=== PATIENT | female | born 1945 | race Two or more races ===

== ENCOUNTER 2025-09-15 12:57 | Inpatient (IN) | payer OTHER ==
[~2025-09-15] VITALS: Ht 162.6 cm; Wt 93.8 kg
[~2025-09-15 12:57] MED LIST: ALPR1TAB2; METO1TAB77; NIFE90TA25
--- NOTE | 2025-09-15 13:23 | ED.PDOC ---
History of Present Illness HPI Comments 80-year-old female brought by paramedics because of having high blood pressure noticed by caregiver. Patient was here few weeks ago for a fall. She does use a walker to assist her. She was scheduled to home nurse to help her ambulate. Home nurse did notice systolic blood pressure in the 200s. Denies chest pain shortness a breath. She does have a history of hypertension and coronary artery disease. Denies any other symptoms. Time Seen by MD: 13:17 Primary Care Provider: WILLIAMS Reviewed Notes: Nurses Notes, Medications, Allergies Allergies: Coded Allergies: Penicillins (Verified Allergy, Severe, RASHES, 05/30/10) Acetaminophen (Verified Allergy, Unknown, 09/15/25) Codeine (Verified Allergy, Unknown, 09/15/25) Erythromycin (Verified Allergy, Unknown, 09/15/25) Hydrocodone (Verified Allergy, Unknown, 09/15/25) Sulfamethoxazole w/Trimethoprim (Verified Allergy, Unknown, 09/15/25) Home Meds Reported Medications Alprazolam (Xanax) 1 Mg Tab, TID 05/30/10 Metoprolol Tartrate (Lopressor) 50 Mg Tab, DAILY 05/30/10 Nifedipine (Adalat Cc) 90 Mg Tab, DAILY 05/30/10 Information Source: Patient, Emergency Med Personnel Mode of Arrival: EMS Severity: Moderate Timing: Days Duration: Since onset Past Medical History PAST MEDICAL HISTORY: CAD, HTN Surgical History: BTL, Hysterectomy CHEMICAL PROCESS OPERATOR History: No Pertinent CHEMICAL PROCESS OPERATOR History Family History Family History: No family hx of Cancer Social History Smoker: Cigarettes Alcohol: Denies ETOH Use Drugs: Denies Drug Use Lives In: Home Constitutional: denies: chills, diaphoresis, fatigue, fever, malaise, sweats, weakness, others EENTM: denies: blurred vision, double vision, ear bleeding, ear discharge, ear drainage, ear pain, ear ringing, eye pain, eye redness, hearing loss, mouth pain, mouth swelling, nasal discharge, nose bleeding, nose congestion, nose pain, photophobia, tearing, throat pain, throat swelling, voice changes, others Respiratory: denies: cough, hemoptysis, orthopnea, SOB at rest, shortness of breath, SOB with excertion, stridor, wheezing, others Cardiovascular: denies: chest pain, dizzy spells, diaphoresis, Dyspnea on exertion, edema, irregular heart beat, left arm pain, lightheadedness, palpitations, PND, syncope, others Gastrointestinal: denies: abdomen distended, abdominal pain, blood streaked bowels, constipated, diarrhea, dysphagia, difficulty swallowing, hematemesis, melena, nausea, poor appetite, poor fluid intake, rectal bleeding, rectal pain, vomiting, others Genitourinary: denies: abnormal vagina bleeding, burning, dyspareunia, dysuria, flank pain, frequency, hematuria, incontinence, pain, , vagina disc harge, urgency, others Neurological: denies: dizziness, fainting, headache, left sided numbness, left sided weakness, numbness, paresthesia, pre-existing deficit, right sided numbness, right sided weakness, seizure, speech problems, tingling, tremors, weakness, others Musculoskeletal: denies: back pain, gout, joint pain, joint swelling, muscle pain, muscle stiffness, neck pain, others Integumetry: denies: bruises, change in color, change in hair/nails, dryness, laceration, lesions, lumps, rash, wounds, others Allergic/Immunocompromised: denies: Difficulty Healing, Frequent Infections, Hives, Itching, others Hematologic/Lymphatic: denies: anemia, blood clots, easy bleeding, easy bruising, swollen glands, others Endocrine: denies: excessive hunger, excessive sweating, excessive thirst, excessive urination, flushing, intolerance to cold, intolerance to heat, unexplained weight gain, unexplained weight loss, others Psychiatric: denies: anxiety, bipolar disorder, depression, hopeless, panic disorder, schizophrenia, sleepless, suicidal, others Physical Exam General Appearance: Moderate Distress HEENT: Normal ENT Inspection, Pharynx Normal, TMs Normal Neck: Full Range of Motion, Non-Tender, Normal, Normal Inspection Respiratory: Chest Non-Tender, Lungs Clear, No Accessory Muscle Use, No Respiratory Distress, Normal Breath Sounds Cardiovascular: No Edema, No JVD, No Murmur, No Gallop, Normal Peripheral Pulses, Regular Rate/Rhythm Breast Exam: Deferred Gastrointestinal: No Organomegaly, Non Tender, No Pulsatile Mass, Normal Bowel Sounds, Soft Genitalia: Deferred Pelvic: Deferred Rectal: Deferred Extremities: No calf tenderness, Normal capillary refill, Normal range of motion, Non-tender, No pedal edema Musculoskeletal : Apperance: Normal Neurologic: Alert, mirror framer II-XII nml as Tested, No Motor Deficits, Normal Affect, Normal Mood, No Sensory Deficits Cerebellar Function: NOT DONE Reflexes: NOT DONE Skin: Dry, Normal Color, Warm Peripheral Pulses: 3+ Radial (R), 3+ Radial (L) Lymphatic: No Adenopathy Was a procedure done? Was a procedure done?: No Differential Dx Considerations may include: Hypertension Electrolyte imbalance X-Ray, Labs, Meds, VS Vital Signs Date Time Temp Pulse Resp B/P (MAP) Pulse Ox O2 Delivery O2 Flow Rate FiO2 09/15/25 16:02 206/67 09/15/25 16:00 66 20 206/ (113) 95 09/15/25 14:17 180/64 09/15/25 13:30 97.7 56 18 180/64 (102) 99 97.7 09/15/25 13:30 55 18 99 Room Air* 0 21 09/15/25 12:57 97.6 60 16 175/73 97 97.6 09/15/25 12:57 59 Lab Test 09/15/25 17:00 09/15/25 13:33 Range/Units Urine Color Pending Urine Clarity Pending Urine pH Pending Urine Specific [place] Pending Urine Protein Pending Urine Ketones Pending Urine Blood Pending Urine Nitrite Pending Urine Bilirubin Pending Urine Urobilinogen Pending Urine Leukocyte Esterase Pending Urine RBC Pending Urine Microscopic WBC Pending Urine Squamous Epithelial Cells Pending Urine Bacteria Pending Urine Glucose Pending White Blood Count 8.5 4.4-10.8 10^3/uL Red Blood Count 4.16 4.0-5.20 10^6/uL Hemoglobin 10.8 L 12.2-16.2 g/dL Hematocrit 32.9 L 36.0-46.0 % Mean Corpuscular Volume 79.0 L 80.0-100.0 fL Mean Corpuscular Hemoglobin 25.8 L 28.0-32.0 pg Mean Corpuscular Hemoglobin Concent 32.7 32.0-36.0 g/dL Red Cell Distribution Width 15.4 H 11.8-14.3 % Platelet Count 288 140-450 10^3/uL Mean Platelet Volume 9.2 6.9-10.8 fL Neutrophils (%) (Auto) 51.5 37.0-80.0 % Lymphocytes (%) (Auto) 29.6 10.0-50.0 % Monocytes (%) (Auto) 11.9 0.0-12.0 % Eosinophils (%) (Auto) 6.4 0.0-7.0 % Basophils (%) (Auto) 0.6 0.0-2.0 % Neutrophils # (Auto) 4.4 1.6-8.6 10 ^3/uL Lymphocytes # (Auto) 2.5 0.4-5.4 10 ^3/uL Monocytes # (Auto) 1.0 0-1.3 10 ^3/uL Eosinophils # (Auto) 0.5 0-0.8 10 ^3/uL Basophils # (Auto) 0 0-0.2 10 ^3/uL Nucleated Red Blood Cells 0.0 % Sodium Level 142 136-145 mmol/L Potassium Level 4.4 3.5-5.1 mmol/L Chloride Level 105 98-107 mmol/L Carbon Dioxide Level 27 20-31 mmol/L Anion Gap 10 5-15 Blood Urea Nitrogen 14 9-23 mg/dL Creatinine 1.00 0.550-1.02 mg/dL Glomerular Filtration Rate Calc 58 >90 mL/min BUN/Creatinine Ratio 14.0 10.0-20.0 Serum Glucose 92 74-106 mg/dL Calcium Level 8.9 8.7-10.4 mg/dL Troponin I High Sensitivity 38 *H </=34 ng/L Current Medications Medications (Trade) Dose Ordered Sig/Dionna Route Start Time Stop Time Status Last Admin Hydralazine HCl (Apresoline Injection) 5 mg ONCE ONCE IV 09/15/25 14:15 09/15/25 14:16 DC 09/15/25 14:17 Hydralazine HCl (Apresoline Injection) 10 mg ONCE ONCE IV 09/15/25 15:30 09/15/25 15:31 DC 09/15/25 16:[address] [address] Ph: [phone] DIAGNOSTIC IMAGING Diagnostic Imaging Report : [id number] Signed PATIENT: FIDEL ARANGO ACCT: [id number] UNIT: [id number] : 1945 LOC: ER ROOM / BED: / AGE / SEX: 80 / F ADM STATUS: REG ER SERVICE 1317 ORDERING PHYSICIAN: DELFINO ARRIAGA MD PROCEDURE(s): CXRP - CHEST PORTABLE REASON: sob ORDER NUMBER(s): [id number], ACCESSION NUMBER(s): [id number] EXAM: XY CHEST PORTABLE Indication: sob Technique: Single frontal view of the chest was obtained Comparison: None FINDINGS: Lines and Tubes: None Lungs: No focal consolidation. Pleura: No effusion. No pneumothorax. Cardiomediastinal contours: Unremarkable. Atherosclerotic vascular calcifications of the thoracic aorta are noted. Bones: No acute osseous abnormality. IMPRESSION: No acute cardiopulmonary disease. Patient alert. Does have high blood pressure. Mentating well. Moving all extremities pain She does have injury to her left knee from fall that happened few weeks ago. She does use walker to assist. Was given hydralazine. Explained to the patient. Continue monitoring. Time of 1ST Reevaluation: 13:22 Reevaluation 1ST: Unchanged Patient Education/Counseling: Diagnosis, Treatment, Prognosis Family Education/Counseling: No Family Present SEPSIS Sepsis Screen Physician Orders Chest Portable (09/15/25 13:17) Urinalysis (09/15/25 13:17) Electrocardigram (09/15/25 13:45) Vital Signs Date Time Temp Pulse Resp B/P (MAP) Pulse Ox O2 Delivery O2 Flow Rate FiO2 09/15/25 16:02 206/67 09/15/25 16:00 66 20 206/67 (113) 95 09/15/25 14:17 180/64 09/15/25 13:30 97.7 56 18 180/64 (102) 99 97.7 09/15/25 13:30 55 18 99 Room Air* 0 21 09/15/25 12:57 97.6 60 16 175/73 97 97.6 09/15/25 12:57 59 Laboratory Tests Test 09/15/25 13:33 White Blood Count 8.5 10^3/uL (4.4-10.8) Medications Medications Dose Ordered Sig/Dionna Route Start Time Stop Time Status Last Admin Dose Admin Hydralazine HCl 5 mg ONCE ONCE IV 09/15/25 14:15 09/15/25 14:16 DC 09/15/25 14:17 Hydralazine HCl 10 mg ONCE ONCE IV 09/15/25 15:30 09/15/25 15:31 DC 09/15/25 16:02 Departure 1 Departure Time of Disposition: 13:23 Impression: Primary Impression: Hypertensive emergency Disposition: ADMITTED INPATIENT Admit to: Med Surg Condition: Guarded Critical Care Note Critical Care Time?: Yes (90 min-critical care time only) Stability Stability form required: No Heart Score Heart Score: Heart Score Response (Comments) Value History Slightly Suspicious 0 EKG Normal 0 Age >65 2 Risk Factors >3 or Hx ASHD 2 Troponin Normal limit 0 Total 4 I personally scribed for DELFINO ARRIAGA MD ([email or web address]) on 09/15/25 at 17:05. Electronically submitted by Farhana Landrum ([facility]). DELFINO ARRIAGA MD Sep 15, 2025 13:23
[2025-09-15 13:30] VITALS: PULSE 55; RESP 18; O2SAT 99
[2025-09-15] MEDS ORDERED: hydrALAZINE HCL 20 MG/ML VL IV ONE (13:30)
--- NOTE | 2025-09-15 13:58 | DVH ---
EXAM: XY CHEST PORTABLE Indication: sob Technique: Single frontal view of the chest was obtained Comparison: None FINDINGS: Lines and Tubes: None Lungs: No focal consolidation. Pleura: No effusion. No pneumothorax. Cardiomediastinal contours: Unremarkable. Atherosclerotic vascular calcifications of the thoracic ao rta are noted. Bones: No acute osseous abnormality. IMPRESSION: No acute cardiopulmonary disease.
[2025-09-15 14:07] LABS: Hematocrit 32.9 % (36.0-46.0); Hemoglobin 10.8 g/dL (12.2-16.2); Mean Corpuscular Hemoglobin 25.8 pg (28.0-32.0); Mean Corpuscular Volume 79.0 fL (80.0-100.0); Nucleated Red Blood Cells % 0.0 %
[2025-09-15 14:13] LABS: Chloride 105 mmol/L (98-107); Potassium 4.4 mmol/L (3.5-5.1); Sodium 142 mmol/L (136-145)
[2025-09-15 14:14] LABS: Anion Gap 10 (5-15); Carbon Dioxide 27 mmol/L (20-31)
[2025-09-15 14:15] LABS: Calcium 8.9 mg/dL (8.7-10.4)
[2025-09-15] MEDS: hydrALAZINE HCL 20 MG/ML VL IV ONE ×2 (14:17→16:02)
[2025-09-15 14:20] LABS: BUN/Creatinine Ratio 14.0 (10.0-20.0); Blood Urea Nitrogen 14 mg/dL (9-23); Glucose 92 mg/dL (74-106)
[2025-09-15 17:31] LABS: Urine Protein, UAD Negative (Negative)
--- NOTE | 2025-09-15 18:14 | ECG ---
[facility] Test Date: 2025-09-15 Test Time: 12:57:40 Pat Name: FIDEL ARANGO Department: [facility] ED Room: 0245T Gender: F Polisher Hand: [email or web address] : 1945 Requested By: DELFINO ARRIAGA Order Number: [id number] Reading MD: Todd Johnson Measurements Intervals [place] Rate: 59 P: 53 VT: 158 QRS: 43 QRSD: 93 T: 61 QT: 442 QTc: 438 Interpretive Statements Sinus rhythm Consider left ventricular hypertrophy Electronically Signed On 09-18-2025 14:58:04 PDT by Todd Johnson Please click the below link to view image of tracing.
[2025-09-15] MEDS ORDERED: DOCUSATE SOD 100 MG CAP PO PRN (19:00)
--- NOTE | 2025-09-15 20:04 | DVHHP2 ---
History of Present Illness Reason for Visit: Hypertensive emergency History of Present Illness The patient is a 80-year-old female with past medical history of Coronary artery disease and hypertension who presented to [facility] ED for evaluation of elevated blood pressure. Patient was here few weeks ago for a fall, noticed by caregiver elevated blood pressure with systolic blood pressure in the 200s and was instructed to come to the ED for further evaluation. Patient was seen and evaluated in the ED, laboratory data shows WBC 8.5, hemoglobin 10.8, hematocrit 32.9, platelets 288, sodium 142, potassium 4.4, BUN 14, creatinine 1.00, glucose 92, calcium 8.9, troponin 38, blood pressure 206/67 tr ending down to 138/54, heart rate 66, temperature 97.7 F, O2 saturation 99% on room air. Chest x-ray show no acute cardiopulmonary disease. Please see medication orders section in the computer. On my assessment, patient denied chest pain, no headache, dizziness, diaphoresis, shortness of breaths, no diarrhea, nausea, vomiting, fever, no chills. Patient was admitted for further evaluation and medical management. Past Medical History CAD, HTN Past Surgical History BTL, Hysterectomy Family History Reviewed, noncontributory to the management of this case. Past Social History The patient lives at home, smokes cigarettes, denies alcohol or illicit drugs abuse. Review of Systems Constitutional: Yes: Weakness; No: Fever, Chills, Sweats, Malaise, Other Eyes: No: Pain, Vision change, Conjunctivae inflammation, Eyelid inflammation, Other, Redness ENT: No: Ear pain, Ear discharge, Nose pain, Nose discharge, Nose congestion, Mouth pain, Mouth swelling, Throat pain, Throat swelling, Other Respiratory: No: Cough, Dry, Shortness of breath, SOB with excertion, Wheezing, Hemoptysis, Pleuritic Pain, Sputum, Wheezing, Other Cardiovascular: Other (Hypertension); No: Chest Pain, Palpitations, Orthopnea, Paroxysmal Noc. Dyspnea, Edema, Lt Headedness Gastrointestinal: No: Nausea, Vomiting, Abdominal Pain, Diarrhea, Constipation, Melena, Hematochezia, Other Genitourinary: No Dysuria, No Frequency, No Incontinence, No Hematuria, No Retention, No Other Musculoskeletal: No: other, neck pain, shoulder pain, arm pain, back pain, hand pain, leg pain, foot pain Skin: No: Rash, Lesions, Jaundice, Bruising, Other Neurological: No: Weakness, Numbness, Incoordination, Change in speech, Confusion, Seizures, Other Allergies: Coded Allergies: Penicillins (Verified Allergy, Severe, RASHES, 05/30/10) Acetaminophen (Verified Allergy, Unknown, 09/15/25) Codeine (Verified Allergy, Unknown, 09/15/25) Erythromycin (Verified Allergy, Unknown, 09/15/25) Hydrocodone (Verified Allergy, Unknown, 09/15/25) Sulfamethoxazole w/Trimethoprim (Verified Allergy, Unknown, 09/15/25) Medications Current Medications Medications Dose Ordered Sig/Dionna Route Start Time Stop Time Status Last Admin Dose Admin Amlodipine Besylate 5 mg DAILY PO 09/16/25 10:00 Hydralazine HCl 10 mg Q6HP PRN IV 09/15/25 19:00 Metoprolol Tartrate 50 mg BID PO 09/15/25 22:00 Sodium Chloride 10 ml Q8HR IV 09/15/25 22:00 Ondansetron HCl 4 mg Q4HP PRN IV 09/15/25 19:00 Docusate Sodium 100 mg BIDPRN PRN PO 09/15/25 19:00 Ibuprofen 400 mg Q6HP PRN PO 09/15/25 19:00 Exam Vital Signs Vital Signs Date Time Temp Pulse Resp B/P (MAP) Pulse Ox O2 Delivery O2 Flow Rate FiO2 09/15/25 16:02 206/67 09/15/25 16:00 66 20 95 09/15/25 13:30 97.7 97.7 09/15/25 13:30 Room Air* 0 21 General Appearance: Alert, Oriented X3, Cooperative, No acute distress HEENT: Atraumatic, PERRLA, EOMI, Mucous membr. moist/pink Respiratory: Normal air movement Cardiovascular: Regular rate, Normal S1, Normal S2, No murmurs Abdominal: Normal bowel sounds, Soft, No tenderness, No hepatospenomegaly, No masses Extremities: No clubbing, No cyanosis, No edema, Normal pulses, No tenderness/swelling Skin: No rashes, No significant lesion Neuro: Normal speech, Normal tone, Sensation intact, Cranial nerves 3-12 NL, Reflexes 2+, Other (Generalized weakness) Psych/Mental Status: Mental status NL, Mood NL Labs/Xrays Labs Test 09/15/25 17:00 09/15/25 13:33 Range/Units Urine Color Colorless Yellow Urine Clarity Clear Clear Urine pH 7.0 5.0-9.0 Urine Specific [place] 1.006 1.001-1.035 Urine Protein Negative Negative Urine Ketones Negative Negative Urine Blood Negative Negative /uL Urine Nitrite Negative Negative Urine Bilirubin Negative Negative Urine Urobilinogen Normal Negative mg/dL Urine Leukocyte Esterase Negative Negative /uL Urine RBC None seen 0 - 4 /hpf Urine Microscopic WBC < 1 0-5 /HPF Urine Squamous Epithelial Cells Few <5 /hpf Urine Bacteria None seen None Seen /hpf Urine Glucose Normal Normal mg/dL White Blood Count 8.5 4.4-10.8 10^3/uL Red Blood Count 4.16 4.0-5.20 10^6/uL Hemoglobin 10.8 L 12.2-16.2 g/dL Hematocrit 32.9 L 36.0-46.0 % Mean Corpuscular Volume 79.0 L 80.0-100.0 fL Mean Corpuscular Hemoglobin 25.8 L 28.0-32.0 pg Mean Corpuscular Hemoglobin Concent 32.7 32.0-36.0 g/dL Red Cell Distribution Width 15.4 H 11.8-14.3 % Platelet Count 288 140-450 10^3/uL Mean Platelet Volume 9.2 6.9-10.8 fL Neutrophils (%) (Auto) 51.5 37.0-80.0 % Lymphocytes (%) (Auto) 29.6 10.0-50.0 % Monocytes (%) (Auto) 11.9 0.0-12.0 % Eosinophils (%) (Auto) 6.4 0.0-7.0 % Basophils (%) (Auto) 0.6 0.0-2.0 % Neutrophils # (Auto) 4.4 1.6-8.6 10 ^3/uL Lymphocytes # (Auto) 2.5 0.4-5.4 10 ^3/uL Monocytes # (Auto) 1.0 0-1.3 10 ^3/uL Eosinophils # (Auto) 0.5 0-0.8 10 ^3/uL Basophils # (Auto) 0 0-0.2 10 ^3/uL Nucleated Red Blood Cells 0.0 % Sodium Level 142 136-145 mmol/L Potassium Level 4.4 3.5-5.1 mmol/L Chloride Level 105 98-107 mmol/L Carbon Dioxide Level 27 20-31 mmol/L Anion Gap 10 5-15 Blood Urea Nitrogen 14 9-23 mg/dL Creatinine 1.00 0.550-1.02 mg/dL Glomerular Filtration Rate Calc 58 >90 mL/min BUN/Creatinine Ratio 14.0 10.0-20.0 Serum Glucose 92 74-106 mg/dL Calcium Level 8.9 8.7-10.4 mg/dL Troponin I High Sensitivity 38 *H </=34 ng/L PATIENT: FIDEL ARANGO ACCT: [id number] UNIT: [id number] : 1945 LOC: ER ROOM / BED: / AGE / SEX: 80 / F ADM STATUS: REG ER SERVICE 1317 ORDERING PHYSICIAN: DELFINO ARRIAGA MD PROCEDURE(s): CXRP - CHEST PORTABLE REASON: sob ORDER NUMBER(s): [id number], ACCESSION NUMBER(s): [id number] EXAM: XY CHEST PORTABLE Indication: sob Technique: Single frontal view of the chest was obtained Comparison: None FINDINGS: Lines and Tubes: None Lungs: No focal consolidation. Pleura: No effusion. No pneumothorax. Cardiomediastinal contours: Unremarkable. Atherosclerotic vascular calcifications of the thoracic aorta are noted. Bones: No acute osseous abnormality. IMPRESSION: No acute cardiopulmonary disease. SEPSIS Sepsis Screen Date sepsis recognized/suspect: Sep 15, 2025 Time Sepsis recognized/suspect: 1330 Recent Procedure: No On Antibiotic Therapy: No Respiratory Rate >20: No Heart Rate >90: No Temp<36 C (96.8 F) or >38.3 C: No SBP <90 or MAP <65 mmHG: No New Acute Mental Status Change: No Is the patient on CPAP, BIPAP,: No Physician Orders Chest Portable (09/15/25 13:17) Amlodipine Tablet (Norvasc Tablet) (09/16/25 10:00) Hydralazine Injection (Apresoline Inject (09/15/25 19:00) Metoprolol Tartrate Tablet (Lopressor Ta (09/15/25 22:00) Allergies (09/15/25 18:46) Code Status (09/15/25 18:46) Sodium Chloride Lock (Saline Lock Ns) (09/15/25 22:00) Oxygen Per Hour (09/15/25 18:46) Ondansetron Hcl (Zofran) (09/15/25 19:00) Docusate Sodium Capsule (Colace Capsule) (09/15/25 19:00) Fall Risk Precautions In Place QSHIFT (09/15/25 18:46) Complete Blood Count (09/16/25 04:00) Comprehensive Metabolic Panel (09/16/25 04:00) Cardiac Diet-2gna,Lofat,Lochol (09/16/25 Breakfast) Condition: Serious (09/15/25 18:46) Maintain Bed Rest (09/15/25 18:46) Sequential Compression Device (09/15/25 ) Ibuprofen Tablet (Motrin Tablet) (09/15/25 19:00) Admit (09/15/25 20:02) Nitroglycerin Sublingual (Ntrostat Subli (09/15/25 20:15) Morphine Sulfate Injection (09/15/25 20:15) Stat Ekg For Chest Pain (09/15/25 20:02) Notify Md Of Changes From Base (09/15/25 20:02) Manager Mass For 24 Hours (09/15/25 20:02) Emergency Dysrhythmia Protocol (09/15/25 20:02) Rhythm Strips Once Every Shift (09/15/25 20:02) Oxygen By Nasal Cannula (09/15/25 20:02) Vital Signs Date Time Temp Pulse Resp B/P (MAP) Pulse Ox O2 Delivery O2 Flow Rate FiO2 09/15/25 16:02 206/67 09/15/25 16:00 66 20 206/67 (113) 95 09/15/25 14:17 180/64 09/15/25 13:30 97.7 56 18 180/64 (102) 99 97.7 09/15/25 13:30 55 18 99 Room Air* 0 21 09/15/25 12:57 97.6 60 16 175/73 97 97.6 09/15/25 12:57 59 Laboratory Tests Test 09/15/25 13:33 White Blood Count 8.5 10^3/uL (4.4-10.8) Medications Medications Dose Ordered Sig/Dionna Route Start Time Stop Time Status Last Admin Dose Admin Hydralazine HCl 5 mg ONCE ONCE IV 09/15/25 14:15 09/15/25 14:16 DC 09/15/25 14:17 5 MG Hydralazine HCl 10 mg ONCE ONCE IV 09/15/25 15:30 09/15/25 15:31 DC 09/15/25 16:02 10 MG Assessment/Plan Assessment/Plan Hypertensive emergency Elevated troponin Generalized weakness Plan 1. Admit to telemetry unit 2. Breathing treatment 3. Pain control management 4. Management of fluids and electrolytes 5. Consultation for hospitalist 6. Diagnostic tests chest x-ray 7. DVT prophylaxis-on aspirin 8. Repeat labs CBC, CMP in a.m. 9. Continue with current medical management 10. Treatment plan discussed with patient and RN. Patient verbalized understanding. Plan discussed with: Patient, Other (RN) My Orders Orders - AYANNA CARR DNP Procedure Category Date Status Time Amlodipine Tablet PHA 09/16/25 In Process (Norvasc Tablet) 10:00 Hydralazine Injection PHA 09/15/25 In Process (Apresoline Inject 19:00 Metoprolol Tartrate PHA 09/15/25 In Process Tablet (Lopressor Ta 22:00 Allergies PAIGE 09/15/25 In Process 18:46 Code Status CODE 09/15/25 Transmitted 18:46 Sodium Chloride Lock PHA 09/15/25 In Process (Saline Lock Ns) 22:00 Oxygen Per Hour RT 09/15/25 Transmitted 18:46 Ondansetron Hcl PHA 09/15/25 In Process (Zofran) 19:00 Docusate Sodium PHA 09/15/25 In Process Capsule (Colace 19:00 Fall Risk Precautions PAIGE 09/15/[address] 18:46 Complete Blood Count LAB 09/16/25 Verified 04:00 Comprehensive LAB 09/16/25 Verified Metabolic Panel 04:00 Cardiac DIET 09/16/25 Transmitted Diet-2gna,Lofat,Lochol Breakfast Condition: Serious PAIGE 09/15/25 In Process 18:46 Maintain Bed Rest PAIGE 09/15/25 In Process 18:46 Sequential PAIGE 09/15/25 In Process Compression Device Ibuprofen Tablet PHA 09/15/25 In Process (Motrin Tablet) 19:00 Admit ADMIT 09/15/25 Verified 20:02 Nitroglycerin PHA 09/15/25 Verified Sublingual (Ntrostat 20:15 Morphine Sulfate PHA 09/15/25 Verified Injection 20:15 Stat Ekg For Chest [facility] 09/15/25 Verified Pain 20:02 Notify Md Of Changes [facility] 09/15/25 Verified From Base 20:02 Manager Mass For [facility] 09/15/25 Verified 24 Hours 20:02 Emergency Dysrhythmia [facility] 09/15/25 Verified Protocol 20:02 Rhythm Strips Once [facility] 09/15/25 Verified Every Shift 20:02 Oxygen By Nasal RT 09/15/25 Verified Cannula 20:02 Problem List: (1) Hypertensive emergency (2) Elevated troponin (3) Generalized weakness Date of Service: Sep 15, 2025 Billing Provider: AYANNA CARR DNP Common Visit Codes: [id number] INP/OBS CARE (HIGH) AYANNA CARR DNP Sep 15, 2025 20:03
[2025-09-15] MEDS ORDERED: MORPHINE SULFATE INJ 2 MG/ml SYRG IV PRN (20:15)
[2025-09-15] MEDS ORDERED: NITROGLYCERIN 0.4 MG SL TAB SL PRN (20:15)
[2025-09-15 20:23] VITALS: PULSE 74; RESP 20; O2SAT 98
[2025-09-15] MEDS: METOPROLOL TARTRATE 50 MG TAB PO SCH (21:30)
[2025-09-15] MEDS: SODIUM CHLOR 0.9% PF (SALINE LOCK) 10ML VIAL/SYR IV SCH (21:30)
[2025-09-15] MEDS: FAMOTIDINE 20 MG TAB PO SCH (22:09)
[2025-09-15] MEDS: hydrALAZINE HCL 20 MG/ML VL IV PRN (22:10)
[2025-09-15] MEDS: ALPRAZolam 0.5 MG TAB PO PRN (22:11)
[2025-09-15 22:48] VITALS: BP 196/79; PULSE 74; RESP 17; TEMP 98.6; O2SAT 94
[2025-09-15] MEDS: ASPirin-EC 325mg tab PO ONE (23:43)
[2025-09-16] VITALS (8 sets, daily range): BP systolic 127–173; BP diastolic 51–91; PULSE 68–101; RESP 16–20; TEMP 97.6–99.1; O2SAT 91–97
[2025-09-16 03:22] LABS: Hemoglobin 11.3 g/dL (12.2-16.2)
[2025-09-16 03:23] LABS: Hematocrit 34.1 % (36.0-46.0); Mean Corpuscular Hemoglobin 25.8 pg (28.0-32.0); Mean Corpuscular Volume 78.1 fL (80.0-100.0); Nucleated Red Blood Cells % 0.1 %
[2025-09-16 03:46] LABS: Albumin 3.9 g/dL (3.2-4.8); Alkaline Phosphatase 91 U/L (46-116); Anion Gap 11 (5-15); BUN/Creatinine Ratio 12.0 (10.0-20.0); Blood Urea Nitrogen 11 mg/dL (9-23); Calcium 9.2 mg/dL (8.7-10.4); Carbon Dioxide 24 mmol/L (20-31); Chloride 105 mmol/L (98-107); Potassium 3.8 mmol/L (3.5-5.1); Sodium 140 mmol/L (136-145); Total Protein 7.0 g/dL (5.7-8.2)
[2025-09-16 03:47] LABS: Bilirubin, Total 0.6 mg/dL (0.2-1.0)
[2025-09-16 03:50] LABS: Alanine Aminotransferase < 9 U/L (7-40); Glucose 118 mg/dL (74-106)
[2025-09-16] MEDS: IBUPROFEN 400 MG TAB PO PRN (04:37)
[2025-09-16] MEDS: ASPirin-EC 81 mg tab PO SCH (08:20)
[2025-09-16 09:09] LABS: Magnesium 1.9 mg/dL (1.6-2.6)
[2025-09-16 09:20] LABS: Cholesterol 258.0 mg/dL (< 200); HDL Cholesterol 32.0 mg/dL (40-59); Triglycerides 254.0 mg/dL (< 150)
[2025-09-16] MEDS: LOSARTAN POTASSIUM 50 MG TAB PO SCH (10:00)
--- NOTE | 2025-09-16 11:07 | DVHINCON2 ---
ANDREW TAPIA [facility] 09/16/25 1107: Date Seen: Sep 16, 2025 Referring Physician MONICA May Reason for Consultation Elevated troponin History of Present Illness This is a 80 year old female patient who presents to the emergency room with chief complaint of elevated blood pressure. The patient reports that a home health nurse came to her home and noticed that her blood pressure was >200 systolic. She denies any cardiac symptoms such as chest pain, shortness of breath, palpitations, or dizziness. She also denies any general symptoms such as headache or fatigue. She states that she came to the emergency room because her home health nurse called EMS. Initial twelve lead electrocardiogram revealed sinus bradycardia. Initial troponin level of 38ng/L with slight up trend and current peak level at 49ng/L. The patient is still denies any cardiac symptoms at time of assessment. Significant past medical history includes coronary artery disease with recent stent placement (x 2 AJ to RCA) approximately three weeks ago at [facility] (on ticagrelor and ASA), hypertension, dyslipidemia, CVA, arthritis, and anxiety. The patient states that she has not seen a therapist in the outpatient setting but is planning to schedule an appointment with a therapist at [facility]. Past Medical History Past medical history reviewed. No other significant than mentioned above. Past Surgical History Hysterectomy Tubal ligation Family History Family history reviewed. Social History Patient has a 50 pack-year history, quit smoking approximately 15 years ago Denies illicit drug use Denies alcohol use Allergies: Coded Allergies: Penicillins (Verified Allergy, Severe, RASHES, 05/30/10) Acetaminophen (Verified Allergy, Unknown, 09/15/25) Codeine (Verified Allergy, Unknown, 09/15/25) Erythromycin (Verified Allergy, Unknown, 09/15/25) Hydrocodone (Verified Allergy, Unknown, 09/15/25) Sulfamethoxazole w/Trimethoprim (Verified Allergy, Unknown, 09/15/25) Home Meds Reported Medications Alprazolam (Xanax) 1 Mg Tab, TID 05/30/10 Metoprolol Tartrate (Lopressor) 50 Mg Tab, DAILY 05/30/10 Nifedipine (Adalat Cc) 90 Mg Tab, DAILY 05/30/10 Home Meds Home medications reviewed. Current Medications Current Medications Medications (Trade) Dose Ordered Sig/Dionna Route PRN Reason Start Time Stop Time Status Last Admin Amlodipine Besylate (Norvasc Tablet) 5 mg DAILY PO 09/16/25 10:00 09/16/25 09:24 DC 09/16/25 08:21 Hydralazine HCl (Apresoline Injection) 10 mg Q6HP PRN IV SBP>150 09/15/25 19:00 09/16/25 04:40 Metoprolol Tartrate (Lopressor Tablet) 50 mg BID PO 09/15/25 22:00 09/16/25 08:20 Sodium Chloride (Saline Lock Ns) 10 ml Q8HR IV 09/15/25 22:00 09/16/25 05:47 Ondansetron HCl (Zofran) 4 mg Q4HP PRN IV NAUSEA / VOMITING 09/15/25 19:00 Docusate Sodium (Colace Capsule) 100 mg BIDPRN PRN PO FOR CONSTIPATION 09/15/25 19:00 Ibuprofen (Motrin Tablet) 400 mg Q6HP PRN PO PAIN SCALE 1-3 OR TEMP>100.4 09/15/25 19:00 09/16/25 04:37 Nitroglycerin (Ntrostat Sublingual) 0.4 mg Q5MINP PRN SL FOR CHEST PAIN 09/15/25 20:15 Morphine Sulfate 2 mg Q30M PRN IV FOR CHEST PAIN 09/15/25 20:15 Alprazolam (Xanax Tablet) 0.5 mg Q8HPRN PRN PO ANXIETY 09/15/25 21:30 09/16/25 08:21 Famotidine (Pepcid Tablet) 20 mg DAILY PO 09/15/25 22:00 09/16/25 08:21 Aspirin (Ecotrin Enteric Coated Tablet) 81 mg DAILY PO 09/16/25 10:00 09/16/25 08:20 Nifedipine (Procardia Xl (Time-Release)) 30 mg DAILY PO 09/16/25 10:00 Losartan Potassium (Cozaar Tablet) 50 mg DAILY PO 09/16/25 10:00 Review of Systems Constitutional: No symptom reported Ears, Nose, & Throat: No symptom reported Eyes: No symptom reported Neurological: No symptoms reported Pulmonary/Respiratory: No symptoms reported Cardiovascular: No symptom reported Gastrointestinal: No symptom reported Genitourinary: No symptom reported Musculoskeletal: No symptom reported Skin: No symptom reported Psychiatric: No symptom reported Endocrine: No symptom reported Hematologic/Lymphatic: No symptom reported Vital Signs Vital Signs Date Time Temp Pulse Resp B/P (MAP) Pulse Ox O2 Delivery O2 Flow Rate FiO2 09/16/25 08:30 98.9 68 18 152/51 (84) 91 98.9 09/16/25 08:00 Room Air* 0 21 Physical Exam General Appearance: Cooperative. Well-developed. Well-nourished. No acute distress. Pulmonary/Respiratory: Clear, bilateral breaths sounds. Cardiovascular/Chest: Regular rate and rhythm. Peripheral Pulses: 2+ Radial (R). 2+ Radial (L). 2+ Pedal (R). 2+ Pedal (L) Abdominal Exam: Normal bowel sounds. Ankle Exam: Negative ankle edema Lower extremities: Negative lower extremity edema Neuro/Mental Status: A/OX4, coherent. Thoughts/Psych: Normal thought pattern. Appropriate mood and affect. Good judgment and insight. Appearance: No acute distress. Skin Exam: Normal inspection. Normal color. Warm and dry. Labs/Diagnostic Data Labs Test 09/16/25 03:07 09/15/25 17:00 Range/Units White Blood Count 11.2 #H 4.4-10.8 10^3/uL Red Blood Count 4.37 4.0-5.20 10^6/uL Hemoglobin 11.3 L 12.2-16.2 g/dL Hematocrit 34.1 L 36.0-46.0 % Mean Corpuscular Volume 78.1 L 80.0-100.0 fL Mean Corpuscular Hemoglobin 25.8 L 28.0-32.0 pg Mean Corpuscular Hemoglobin Concent 33.1 32.0-36.0 g/dL Red Cell Distribution Width 15.5 H 11.8-14.3 % Platelet Count 301 140-450 10^3/uL Mean Platelet Volume 9.1 6.9-10.8 fL Neutrophils (%) (Auto) 69.5 37.0-80.0 % Lymphocytes (%) (Auto) 18.3 10.0-50.0 % Monocytes (%) (Auto) 8.6 0.0-12.0 % Eosinophils (%) (Auto) 2.7 0.0-7.0 % Basophils (%) (Auto) 0.9 0.0-2.0 % Neutrophils # (Auto) 7.8 1.6-8.6 10 ^3/uL Lymphocytes # (Auto) 2.1 0.4-5.4 10 ^3/uL Monocytes # (Auto) 1.0 0-1.3 10 ^3/uL Eosinophils # (Auto) 0.3 0-0.8 10 ^3/uL Basophils # (Auto) 0.1 0-0.2 10 ^3/uL Nucleated Red Blood Cells 0.1 % Sodium Level 140 136-145 mmol/L Potassium Level 3.8 3.5-5.1 mmol/L Chloride Level 105 98-107 mmol/L Carbon Dioxide Level 24 20-31 mmol/L Anion Gap 11 5-15 Blood Urea Nitrogen 11 9-23 mg/dL Creatinine 0.92 0.550-1.02 mg/dL Glomerular Filtration Rate Calc 64 >90 mL/min BUN/Creatinine Ratio 12.0 10.0-20.0 Serum Glucose 118 H 74-106 mg/dL Hemoglobin A1c 6.2 H <5.7 % A1C Calcium Level 9.2 8.7-10.4 mg/dL Magnesium Level 1.9 1.6-2.6 mg/dL Total Bilirubin 0.6 0.2-1.0 mg/dL Aspartate Amino Transferase (AST) 20 13-40 U/L Alanine Aminotransferase (ALT) < 9 7-40 U/L Alkaline Phosphatase 91 46-116 U/L Troponin I High Sensitivity 49 *H </=34 ng/L Total Protein 7.0 5.7-8.2 g/dL Albumin 3.9 3.2-4.8 g/dL Triglycerides Level 254 H < 150 mg/dL Cholesterol Level 258 H < 200 mg/dL LDL Cholesterol 175 H < 100 mg/dL HDL Cholesterol 32 L 40-59 mg/dL Thyroid Stimulating Hormone (TSH) 1.51 0.55-4.78 uIU/mL Urine Color Colorless Yellow Urine Clarity Clear Clear Urine pH 7.0 5.0-9.0 Urine Specific [place] 1.006 1.001-1.035 Urine Protein Negative Negative Urine Ketones Negative Negative Urine Blood Negative Negative /uL Urine Nitrite Negative Negative Urine Bilirubin Negative Negative Urine Urobilinogen Normal Negative mg/dL Urine Leukocyte Esterase Negative Negative /uL Urine RBC None seen 0 - 4 /hpf Urine Microscopic WBC < 1 0-5 /HPF Urine Squamous Epithelial Cells Few <5 /hpf Urine Bacteria None seen None Seen /hpf Urine Glucose Normal Normal mg/dL Assessment Hypertensive urgency NSTEMI, likely type II secondary to above Coronary artery disease s/p PTCA X 2 AJ to RCA (on ticagrelor and ASA) Dyslipidemia History of CVA Arthritis Anxiety Plan/Recommendation We will continue with the following plan/recommendations (Dr. Crump): * Transthoracic echocardiogram reveals EF 65% * Aggressive blood pressure control * Continue dual antiplatelet therapy given recent stents to RCA * Lipid-lowering agent * Close cardiac surveillance Patient seen and examined at bedside with . Janitor And Cleaner reviewed coronary angiogram that was done at [facility] as well as angiogram information from [facility]. Patient denying any cardiac symptoms at time of assessment. We will recommend aggressive blood pressure control, continue dual antiplatelet therapy, and lip id-lowering agent. There is no further inpatient cardiac workup indicated at this time. Patient states that she is scheduled to follow up with a therapist at [facility] next month. Thank you for allowing us to care for this patient. Please call with any questions or concerns. Critical care time spent: 44 minutes This medical document was created using an electronic medical record system with voice recognition software and computerized dictation system. Although this document has been carefully reviewed, there might still be some phonetic and typographical errors. Occasional wrong-word or ``sound-alike substitutions may have occurred due to the inherent limitations of voice recognition software. These areas are purely typographical due to imperfections of the software programs and do not reflect any compromise in the patient's medical care. Please read the chart carefully and recognize, using context, where these substitutions have occurred. Plan discussed with: Patient NYHA Physical activity limitations: NA Date of Service: Sep 16, 2025 Billing Provider: ANDREW TAPIA CASE OPERATOR Cardiology Common Codes: 85888-[id number] INP/OBS CARE (High) Cardiology Consultation Codes: 12978-[id number] CONSULT <45MIN MICHELE CRUMP MD 09/16/25 1350: Allergies: Coded Allergies: Penicillins (Verified Allergy, Severe, RASHES, 05/30/10) Acetaminophen (Verified Allergy, Unknown, 09/15/25) Codeine (Verified Allergy, Unknown, 09/15/25) Erythromycin (Verified Allergy, Unknown, 09/15/25) Hydrocodone (Verified Allergy, Unknown, 09/15/25) Sulfamethoxazole w/Trimethoprim (Verified Allergy, Unknown, 09/15/25) Home Meds Reported Medications Alprazolam (Xanax) 1 Mg Tab, TID 05/30/10 Metoprolol Tartrate (Lopressor) 50 Mg Tab, DAILY 05/30/10 Nifedipine (Adalat Cc) 90 Mg Tab, DAILY 05/30/10 Plan/Recommendation pt well known to ct hx of cad s/p cath with myself at [facility] s/; p pci to rca with dr saldana and IVUS non severe LAD cx 60% per notes all cath and report notes reviewed at [facility] and [facility] taking >40 mins times pt seen with cv team cont dapt cont bp meds no symptms Plan discussed with: Patient ANDREW TAPIA Sep 16, 2025 11:07 MICHELE CRUMP MD Sep 16, 2025 13:50
[2025-09-16] MEDS: TICAGRELOR 90 MG TAB PO ONE (11:21)
--- NOTE | 2025-09-16 13:09 | DVHSR ---
APPROVED REPORT EXAM: Two-dimensional and M-mode echocardiogram with Doppler and color Doppler. Blood Pressure: 152/51 mmHg INDICATION Evaluate cardiac function RISK FACTORS Obesity: Height: 5'4", Weight: 213 DIMENSIONS LVDd3.9 (3.8-5.7cm)LA (2D)4.0 (1.9-4.0cm)Aortic Root3.1 (2.0-3.7cm) LVDs2.6 (2.5-4.0cm)LA (MM) (1.9-4.0cm)Aortic Cusp Exc1.3 (1.5-2.0cm) EF (%) 60.0 (55-70%)Rt. Atrium3.7 (1.9-4.0cm)Asc. Aorta cm IVSd1.4 (0.7-1.1cm)RV (D)3.4 (1.8-2.4cm) PWd1.3 (0.7-1.1cm) Mitral Valve MitralMitral Stenosis E wave1.01m/sMV Mean GR.3mmHg A wave1.35m/sMV Peak GR.7mmHg E/A ratio0.72D MVAcm2 DECEL [id number] 1/2 [id number] IVRTmsDop MVA1.79cm2 Aortic Valve Aortic ValveAortic Stenosis V11.38m/Gage Mean GR.11mmHg V22.35m/Gage Peak GR.22mmHg LVOT Diameter1.9 (1.8-2.4cm)Doppler AVA1.66cm2 Pulmonic Valve V21.12m/s Tricuspid Valve TR Velocity2.76m/s [id number] Conclusion lvef 65% moderate LVH moderate MAC, mild mitral stenosis left atirum enlarged
--- NOTE | 2025-09-16 13:53 | DVHPN2 ---
Progress Note Date Seen: Sep 16, 2025 Medical Necessity Reason Pt with a Central, PICC or Fol: No Subjective Review of Systems: CVS:Normal, RESPIRATORY:Normal, GI:Normal, NEURO:Normal Objective vital signs Vital Sign Date Time Temp Pulse Resp B/P (MAP) Pulse Ox O2 Delivery O2 Flow Rate FiO2 09/16/25 12:36 99.1 68 18 127/53 (77) 95 99.1 09/16/25 08:00 Room Air* 0 21 Total Intake and Output 09/15/25 09/15/25 09/16/25 15:00 23:00 07:00 Intake Total 20 ml Balance 20 ml medications Current Medications Medications Dose Ordered Sig/Dionna Route Start Time Stop Time Status Last Admin Dose Admin Hydralazine HCl 10 mg Q6HP PRN IV 09/15/25 19:00 09/16/25 04:40 10 MG Metoprolol Tartrate 50 mg BID PO 09/15/25 22:00 09/16/25 08:20 50 MG Sodium Chloride 10 ml Q8HR IV 09/15/25 22:00 09/16/25 05:47 10 ML Ondansetron HCl 4 mg Q4HP PRN IV 09/15/25 19:00 Docusate Sodium 100 mg BIDPRN PRN PO 09/15/25 19:00 Ibuprofen 400 mg Q6HP PRN PO 09/15/25 19:00 09/16/25 04:37 400 MG Nitroglycerin 0.4 mg Q5MINP PRN SL 09/15/25 20:15 Morphine Sulfate 2 mg Q30M PRN IV 09/15/25 20:15 Alprazolam 0.5 mg Q8HPRN PRN PO 09/15/25 21:30 09/16/25 08:21 0.5 MG Famotidine 20 mg DAILY PO 09/15/25 22:00 09/16/25 08:21 20 MG Aspirin 81 mg DAILY PO 09/16/25 10:00 09/16/25 08:20 81 MG Nifedipine 30 mg DAILY PO 09/16/25 10:00 Losartan Potassium 50 mg DAILY PO 09/16/25 10:00 Atorvastatin Calcium 80 mg HS PO 09/16/25 22:00 Ticagrelor 90 mg BID PO 09/16/25 22:00 Examination: GENERAL:Normal, NECK:Normal, LUNGS:Normal, CVS:Normal, ABDOMEN:Normal, SKIN:Normal, NEURO:Normal laboratory and microbiology Laboratory Tests 09/16/25 03:07 Test 09/16/25 03:07 Range/Units Serum Glucose 118 H 74-106 mg/dL Labs and/or images reviewed: Labs reviewed by me, Image(s) reviewed by me Problem List/Assessment/Plan Problem List/Assessment/Plan Jane Lyon was admitted for hypertensive urgency with systolic blood pressure greater than 200, with recent history of stent placement and non-STEMI. Hypertensive Urgency Assessment: Patient presented with hypertensive urgency with systolic blood pressure greater than 200, requiring immediate antihypertensive management to prevent progression to hypertensive emergency. Plan: - Losartan 50 mg daily - Nifedipine 30 mg daily Non-STEMI, Likely Type 2 Assessment: Patient had recent stent placement approximately 3 weeks ago and is currently on dual antiplatelet therapy. Non-STEMI is likely type 2 in nature. Plan: - Monitor - Consult cardiology - Continue dual antiplatelet therapy with Brilinta and aspirin - Echo ordered by cardiology, pending Hyperlipidemia Assessment: Patient has hyperlipidemia requiring continued statin therapy. Plan: - Continue statin History of CVA Assessment: Patient has history of cerebrovascular accident requiring ongoing monitoring. Plan: - Monitor Plan discussed with: Patient My Orders My Orders Orders - ELISABETH BEDOYA Procedure Category Date Status Time Nifedipine Er PHA 09/16/25 In Process (Procardia Xl 10:00 Losartan Tablet PHA 09/16/25 In Process (Cozaar Tablet) 10:00 Date of Service: Sep 16, 2025 Billing Provider: JUDAH MOULTON MD Common Visit Codes: [id number] INP/OBS CARE (MOD) ELISABETH BEDOYA Sep 16, 2025 13:53
[2025-09-16] MEDS: ATORVASTATIN 20 MG TAB PO SCH (21:49)
[2025-09-16] MEDS: TICAGRELOR 90 MG TAB PO SCH (21:51)
[2025-09-17] VITALS (7 sets, daily range): BP systolic 102–159; BP diastolic 56–96; PULSE 73–92; RESP 16–20; TEMP 37.1; O2SAT 94–97
[2025-09-17] MEDS: ONDANSETRON HCL 4 MG/2 ML VIAL IV PRN (06:23)
[2025-09-17 09:53] LABS: Hemoglobin 12.5 g/dL (12.2-16.2)
[2025-09-17 09:54] LABS: Hematocrit 39.2 % (36.0-46.0); Mean Corpuscular Hemoglobin 25.8 pg (28.0-32.0); Mean Corpuscular Volume 80.5 fL (80.0-100.0); Nucleated Red Blood Cells % 0.1 %
[2025-09-17 10:01] LABS: Chloride 104 mmol/L (98-107); Potassium 4.1 mmol/L (3.5-5.1); Sodium 136 mmol/L (136-145)
[2025-09-17 10:03] LABS: Anion Gap 10 (5-15); Calcium 9.3 mg/dL (8.7-10.4); Carbon Dioxide 22 mmol/L (20-31)
[2025-09-17 10:08] LABS: BUN/Creatinine Ratio 7.9 (10.0-20.0); Blood Urea Nitrogen 11 mg/dL (9-23); Glucose 155 mg/dL (74-106)
[2025-09-17] MEDS: CARVEDILOL 12.5 MG TAB PO SCH (12:03)
[2025-09-17] MEDS: LOSARTAN POTASSIUM 50 MG TAB PO SCH (12:03)
[2025-09-17] MEDS: hydroCHLOROthiazide 25 MG TAB PO SCH (12:05)
[2025-09-17] MEDS: ALPRAZolam 0.5 MG TAB PO PRN (12:31)
[2025-09-17] MEDS ORDERED: ATOR20TA50 PO (15:45)
[2025-09-17] MEDS ORDERED: NIFE1TAB31 PO (15:45)
[2025-09-17] MEDS ORDERED: ASPI-543 PO (15:45)
[2025-09-17] MEDS ORDERED: HYDR25TA5 PO (15:45)
[2025-09-17] MEDS ORDERED: CARV-216 PO (15:45)
[2025-09-17] MEDS ORDERED: TICA90TA PO (15:45)
[2025-09-17] MEDS ORDERED: LOSA-534 PO (15:45)
--- NOTE | 2025-09-17 15:46 | DVHDS2 ---
Discharge Summary Date of Admission Sep 15, 2025 at 20:02 Date of Discharge: Sep 17, 2025 Labs/Diagnostic Data: Laboratory Results Test 09/17/25 09:41 09/16/25 03:07 09/15/25 17:00 White Blood Count 15.1 10^3/uL (4.4-10.8) Red Blood Count 4.86 10^6/uL (4.0-5.20) Hemoglobin 12.5 g/dL (12.2-16.2) Hematocrit 39.2 % (36.0-46.0) Mean Corpuscular Volume 80.5 fL (80.0-100.0) Mean Corpuscular Hemoglobin 25.8 pg (28.0-32.0) Mean Corpuscular Hemoglobin Concent 32.0 g/dL (32.0-36.0) Red Cell Distribution Width 15.9 % (11.8-14.3) Platelet Count 353 10^3/uL (140-450) Mean Platelet Volume 9.2 fL (6.9-10.8) Neutrophils (%) (Auto) 81.0 % (37.0-80.0) Lymphocytes (%) (Auto) 10.7 % (10.0-50.0) Monocytes (%) (Auto) 7.3 % (0.0-12.0) Eosinophils (%) (Auto) 0.7 % (0.0-7.0) Basophils (%) (Auto) 0.3 % (0.0-2.0) Neutrophils # (Auto) 12.2 10 ^3/uL (1.6-8.6) Lymphocytes # (Auto) 1.6 10 ^3/uL (0.4-5.4) Monocytes # (Auto) 1.1 10 ^3/uL (0-1.3) Eosinophils # (Auto) 0.1 10 ^3/uL (0-0.8) Basophils # (Auto) 0.1 10 ^3/uL (0-0.2) Nucleated Red Blood Cells 0.1 % Sodium Level 136 mmol/L (136-145) Potassium Level 4.1 mmol/L (3.5-5.1) Chloride Level 104 mmol/L (98-107) Carbon Dioxide Level 22 mmol/L (20-31) Anion Gap 10 (5-15) Blood Urea Nitrogen 11 mg/dL (9-23) Creatinine 1.39 mg/dL (0.550-1.02) Glomerular Filtration Rate Calc 39 mL/min (>90) BUN/Creatinine Ratio 7.9 (10.0-20.0) Serum Glucose 155 mg/dL (74-106) Calcium Level 9.3 mg/dL (8.7-10.4) Hemoglobin A1c 6.2 % A1C (<5.7) Magnesium Level 1.9 mg/dL (1.6-2.6) Total Bilirubin 0.6 mg/dL (0.2-1.0) Aspartate Amino Transferase (AST) 20 U/L (13-40) Alanine Aminotransferase (ALT) < 9 U/L (7-40) Alkaline Phosphatase 91 U/L (46-116) Troponin I High Sensitivity 49 ng/L (</=34) Total Protein 7.0 g/dL (5.7-8.2) Albumin 3.9 g/dL (3.2-4.8) Triglycerides Level 254 mg/dL (< 150) Cholesterol Level 258 mg/dL (< 200) LDL Cholesterol 175 mg/dL (< 100) HDL Cholesterol 32 mg/dL (40-59) Thyroid Stimulating Hormone (TSH) 1.51 uIU/mL (0.55-4.78) Urine Color Colorless (Yellow) Urine Clarity Clear (Clear) Urine pH 7.0 (5.0-9.0) Urine Specific [place] 1.006 (1.001-1.035) Urine Protein Negative (Negative) Urine Ketones Negative (Negative) Urine Blood Negative /uL (Negative) Urine Nitrite Negative (Negative) Urine Bilirubin Negative (Negative) Urine Urobilinogen Normal mg/dL (Negative) Urine Leukocyte Esterase Negative /uL (Negative) Urine RBC None seen /hpf (0 - 4) Urine Microscopic WBC < 1 /HPF (0-5) Urine Squamous Epithelial Cells Few /hpf (<5) Urine Bacteria None seen /hpf (None Seen) Urine Glucose Normal mg/dL (Normal) Other Laboratory Tests 09/17/25 09:41 Brief Hx & Hospital Course: Patient was admitted for hypertensive urgency. During hospitalization, she was treated with antihypertensive therapy, resulting in improved and stable blood pressure at the time of discharge. Her antihypertensive regimen was adjusted for better blood pressure control. She will be discharged home on hydrochlorothiazide 12.5 mg daily, losartan 100 mg daily, and carvedilol 12.5 mg twice daily. Due to her history of coronary artery disease and a recent percutaneous coronary intervention (PCI), patient is to continue Brilinta 90 mg twice daily and aspirin as recommended by cardiology. Her nifedipine dose was decreased to 30 mg daily to help optimize blood pressure management.An echocardiogram performed during hospitalization demonstrated a preserved left ventricular ejection fraction of 65%. Patient was also found to have a non-ST elevation myocardial infarction (NSTEMI), likely type II, possibly secondary to demand ischemia related to hypertensive urgency. She remained clinically stable throughout her hospital course with no acute complications. Patient was counseled on strict medication adherence, low-sodium diet, and blood pressure monitoring at home. She was advised to follow up with her primary care provider within one week of discharge for ongoing management and monitoring of blood pressure and cardiac status. Condition at Discharge: Fair Final Diagnosis/Problems List Hypertensive Urgency Assessment: Patient presented with hypertensive urgency with systolic blood pressure greater than 200, requiring immediate antihypertensive management to prevent progression to hypertensive emergency. Plan: - Losartan 50 mg daily - Nifedipine 30 mg daily Non-STEMI, Likely Type 2 Assessment: Patient had recent stent placement approximately 3 weeks ago and is currently on dual antiplatelet therapy. Non-STEMI is likely type 2 in nature. Plan: - Monitor - Consult cardiology - Continue dual antiplatelet therapy with Brilinta and aspirin - Echo ordered by cardiology, pending Hyperlipidemia Assessment: Patient has hyperlipidemia requiring continued statin therapy. Plan: - Continue statin History of CVA Assessment: Patient has history of cerebrovascular accident requiring ongoing monitoring. Plan: - Monitor Discharge Disposition: Home Discharge Instruct/Medications Diet: Cardiac 2g Na,low cholest Activity: No Restrictions, As Tolerated Follow Up/Referral: PCP within 1 week Scheduled Alprazolam (Xanax), TID, (Reported) Aspirin (Aspir-Low), 81 MG PO DAILY Atorvastatin Calcium (Atorvastatin Calcium), 80 MG PO HS Carvedilol (Coreg), 12.5 MG PO Q12HR Hctz (Hydrochlorothiazide), 12.5 MG PO DAILY Losartan Potassium (Losartan Potassium), 100 MG PO DAILY Metoprolol Tartrate (Lopressor), DAILY, (Reported) Nifedipine (Adalat Cc), DAILY, (Reported) Nifedipine (Nifedipine Er), 30 MG PO DAILY Ticagrelor Base (Brilinta), 90 MG PO BID Discharge Statement: "Patient was advised to return to the ER or call 911 if any headaches, dizziness, shortness of breath, chest pain, abdominal pain, bleeding, fevers, or worsening of medical condition. Patient was counseled about treatment plan, medications, possible side effects, patientverbalized understanding. All questions were answered to the best of my ability. This discharge took greater then 30 minutes in planning, reviewing documentation, counseling the patient, and discussing with other team members." ASSESSMENT ASSESSMENT Assessment Hypertensive Urgency Assessment: Patient presented with hypertensive urgency with systolic blood pressure greater than 200, requiring immediate antihypertensive management to prevent progression to hypertensive emergency. Plan: - Losartan 50 mg daily - Nifedipine 30 mg daily Non-STEMI, Likely Type 2 Assessment: Patient had recent stent placement approximately 3 weeks ago and is currently on dual antiplatelet therapy. Non-STEMI is likely type 2 in nature. Plan: - Monitor - Consult cardiology - Continue dual antiplatelet therapy with Brilinta and aspirin - Echo ordered by cardiology, pending Hyperlipidemia Assessment: Patient has hyperlipidemia requiring continued statin therapy. Plan: - Continue statin History of CVA Assessment: Patient has history of cerebrovascular accident requiring ongoing monitoring. Plan: - Monitor ELISABETH BEDOYA [facility] Sep 17, 2025 15:46
== END 2025-09-17 18:45 | disposition home or self-care (01) | DRG 280 ==
LOC: EDBD 12:57 → ER 13:07 → OVERFLOW 20:02 → TELE-EAST 22:28
PROVIDERS: ADMIT Nurse Practitioner Family; ATTEND Nurse Practitioner Family
DX: I16.0 Hypertensive urgency (principal); N17.0 Acute kidney failure with tubular necrosis; I21.A1 Myocardial infarction type 2; E78.5 Hyperlipidemia, unspecified; F17.210 Nicotine dependence, cigarettes, uncomplicated; I25.10 Atherosclerotic heart disease of native coronary artery without angina pectoris; I10 Essential (primary) hypertension; F41.9 Anxiety disorder, unspecified; Z95.5 Presence of coronary angioplasty implant and graft; Z90.710 Acquired absence of both cervix and uterus; Z98.51 Tubal ligation status; Z88.6 Allergy status to analgesic agent; Z88.5 Allergy status to narcotic agent; Z88.3 Allergy status to other anti-infective agents; Z88.1 Allergy status to other antibiotic agents; Z88.0 Allergy status to penicillin; Z86.73 Personal history of transient ischemic attack (TIA), and cerebral infarction without residual deficits; Z79.899 Other long term (current) drug therapy; Z79.82 Long term (current) use of aspirin
CPT/HCPCS: 36415; 71045; 80048; 80053; 80061; 81001; 83036; 83735; 84443; 84484; 85025; 93005; 93306; 99291; 99292; G0378; J2405

== ENCOUNTER 2025-10-08 11:36 | Inpatient (IN) | payer OTHER ==
[~2025-10-08] VITALS: Ht 165.1 cm; Wt 85.3 kg
[~2025-10-08 11:36] MED LIST changes: +ASPI-543 PO; +ATOR20TA50 PO; +CARV-216 PO; +HYDR25TA5 PO; +LOSA-534 PO; -METO1TAB77; +NIFE1TAB31 PO; -NIFE90TA25; +TICA90TA PO
--- NOTE | 2025-10-08 11:48 | ECG ---
[facility] Test Date: 2025-10-08 Test Time: 11:42:48 Pat Name: FIDEL ARANGO Department: ED Room: 0277T Gender: F Reel Fed Printer: álvaro : [id number] Requested By: EMERGENCY EMERGENCY Order Number: [id number] Reading MD: Todd Johnson Measurements Intervals [place] Rate: 70 P: 90 IN: 160 QRS: 67 QRSD: 100 T: 58 QT: 405 QTc: 437 Interpretive Statements Sinus rhythm Probable left ventricular hypertrophy Anterior ST elevation, probably due to LVH Electronically Signed On 10-10-2025 17:55:11 PST by Todd Johnson Please click the below link to view image of tracing.
--- NOTE | 2025-10-08 12:16 | ED.PDOC ---
History of Present Illness HPI Comments 80-year-old female brought in by ambulance with a prior medical history of CAD, hypertension: Surgical history of BTL, hysterectomy, stent placed last month at [facility] in the chief complaint of a syncopal episode. EMS stay on picking the patient up from home and being told by family that the patient was sitting on the walker and making an almost with the family witnessed the patient have a syncope with no trauma. Family a home state that the patient has been sick for two days as well as having generalized weakness ever since stent was placed. Denies any other symptoms at this time. Denies chills, fever, N/V/D, SOB, CP. No other associated symptoms, modifiers, recent injuries or sick contacts present at this time. Chief Complaint: Syncope Time Seen by MD: 12:00 Primary Care Provider: WILLIAMS Reviewed Notes: Nurses Notes, Medications, Allergies Allergies: Coded Allergies: Penicillins (Verified Allergy, Severe, RASHES, 05/30/10) Acetaminophen (Verified Allergy, Unknown, 09/15/25) Codeine (Verified Allergy, Unknown, 09/15/25) Erythromycin (Verified Allergy, Unknown, 09/15/25) Hydrocodone (Verified Allergy, Unknown, 09/15/25) Sulfamethoxazole w/Trimethoprim (Verified Allergy, Unknown, 09/15/25) Tetracycline (Verified Allergy, Unknown, 10/08/25) Home Meds Active Scripts Aspirin (Aspir-Low) 81 Mg Tab, 81 MG PO DAILY for 30 Days, #30 TAB Prov:ELISABETH BEDOYA [facility] 09/17/25 Atorvastatin Calcium (ATORVASTATIN CALCIUM) 20 Mg Tab, 80 MG PO HS for 30 Days, #120 TAB Prov:ELISABETH BEDOYA [facility] 09/17/25 Ticagrelor Base (BRILINTA) 90 Mg Tab, 90 MG PO BID for 30 Days, #60 TAB Prov:ELISABETH BEDOYAP 09/17/25 Nifedipine (Nifedipine Er) 30 Mg Tab, 30 MG PO DAILY for 30 Days, #30 TAB Prov:ELISABETH BEDOYA [facility] 09/17/25 Losartan Potassium (Losartan Potassium) 50 Mg Tab, 100 MG PO DAILY for 30 Days, #60 TAB Prov:ELISABETH BEDOYAP 09/17/25 Hctz (Hydrochlorothiazide) 25 Mg Tab, 12.5 MG PO DAILY for 30 Days, #15 TAB Prov:ELISABETH BEDOYA [facility] 09/17/25 Carvedilol (COREG) 12.5 Mg Tab, 12.5 MG PO Q12HR for 30 Days, #60 TAB Prov:ELISABETH BEDOYA [facility] 09/17/25 Reported Medications Alprazolam (Xanax) 1 Mg Tab, TID 05/30/10 Information Source: Patient Mode of Arrival: EMS Severity: Moderate Timing: Minutes Duration: Since onset, Minutes Prehospital treatment: None Past Medical History PAST MEDICAL HISTORY: CAD, HTN Surgical History: BTL, Hysterectomy Surgical History (Other): Stent placed last month at [facility] [employer]IST History: No Pertinent [employer]IST History Family History Family History: Reviewed,noncontributory to illness, Unknown Social History Smoker: Cigarettes Alcohol: Denies ETOH Use Drugs: Denies Drug Use Lives In: Home Constitutional: denies: chills, diaphoresis, fatigue, fever, malaise, sweats, weakness, others EENTM: denies: blurred vision, double vision, ear bleeding, ear discharge, ear drainage, ear pain, ear ringing, eye pain, eye redness, hearing loss, mouth pain, mouth swelling, nasal discharge, nose bleeding, nose congestion, nose pain, photophobia, tearing, throat pain, throat swelling, voice changes, others Respiratory: denies: cough, hemoptysis, orthopnea, SOB at rest, shortness of breath, SOB with excertion, stridor, wheezing, others Cardiovascular: reports: syncope; denies: chest pain, dizzy spells, diaphoresis, Dyspnea on exertion, edema, irregular heart beat, left arm pain, lightheadedness, palpitations, PND, others Gastrointestinal: denies: abdomen distended, abdominal pain, blood streaked bowels, constipated, diarrhea, dysphagia, difficulty swallowing, hematemesis, melena, nausea, poor appetite, poor fluid intake, rectal bleeding, rectal pain, vomiting, others Genitourinary: denies: abnormal vagina bleeding, burning, dyspareunia, dysuria, flank pain, frequency, hematuria, incontinence, pain, , vagina discharge, urgency, others Neurological: denies: dizziness, fainting, headache, left sided numbness, left sided weakness, numbness, paresthesia, pre-existing deficit, right sided numbness, right sided weakness, seizure, speech problems, tingling, tremors, weakness, others Musculoskeletal: denies: back pain, gout, joint pain, joint swelling, muscle pain, muscle stiffness, neck pain, others Integumetry: denies: bruises, change in color, change in hair/nails, dryness, laceration, lesions, lumps, rash, wounds, others Allergic/Immunocompromised: denies: Difficulty Healing, Frequent Infections, Hives, Itching, others Hematologic/Lymphatic: denies: anemia, blood clots, easy bleeding, easy bruising, swollen glands, others Endocrine: denies: excessive hunger, excessive sweating, excessive thirst, excessive urination, flushing, intolerance to cold, intolerance to heat, unexplained weight gain, unexplained weight loss, others Psychiatric: denies: anxiety, bipolar disorder, depression, hopeless, panic disorder, schizophrenia, sleepless, suicidal, others All Other Systems: Reviewed and Negative Physical Exam Exam Comments Chronically ill-appearing General Appearance: No Apparent Distress, Normal HEENT: Normal ENT Inspection, Pharynx Normal, TMs Normal Neck: Full Range of Motion, Non-Tender, Normal, Normal Inspection Respiratory: Chest Non-Tender, Lungs Clear, No Accessory Muscle Use, No Respiratory Distress, Normal Breath Sounds Cardiovascular: No Edema, No JVD, No Murmur, No Gallop, Normal Peripheral Pulses, Regular Rate/Rhythm Breast Exam: Deferred Gastrointestinal: No Organomegaly, Non Tender, No Pulsatile Mass, Normal Bowel Sounds, Soft Genitalia: Deferred Pelvic: Deferred Rectal: Deferred Extremities: No calf tenderness, Normal capillary refill, Normal inspection, Normal range of motion, Non-tender, No pedal edema Musculoskeletal : Apperance: Normal Neurologic: Alert, orthopedic mechanic II-XII nml as Tested, No Motor Deficits, Normal Affect, Normal Mood, No Sensory Deficits Cerebellar Function: Normal Reflexes: Normal Skin: Dry, Normal Color, Warm Lymphatic: No Adenopathy Was a procedure done? Was a procedure done?: No EKG EKG : Pulse Rate (adult): 70 [place]: Normal Cardiac Rhythm: NSR Block: None Hypertrophy: None ST: Normal Differential Dx Considerations may include: See MDM X-Ray, Labs, Meds, VS Vital Signs Date Time Temp Pulse Resp B/P (MAP) Pulse Ox O2 Delivery O2 Flow Rate FiO2 11/16/25 13:51 97.4 71 16 91/59 (70) 100 97.4 10/08/25 12:16 70 10/08/25 11:44 98.3 71 18 128/101 96 98.3 10/08/25 11:42 70 Lab Test 10/08/25 14:22 10/08/25 13:12 Range/Units Troponin I High Sensitivity 34 32 </=34 ng/L White Blood Count 12.0 H 4.4-10.8 10^3/uL Red Blood Count 4.56 4.0-5.20 10^6/uL Hemoglobin 11.9 L 12.2-16.2 g/dL Hematocrit 36.4 36.0-46.0 % Mean Corpuscular Volume 79.9 L 80.0-100.0 fL Mean Corpuscular Hemoglobin 26.1 L 28.0-32.0 pg Mean Corpuscular Hemoglobin Concent 32.7 32.0-36.0 g/dL Red Cell Distribution Width 15.5 H 11.8-14.3 % Platelet Count 278 140-450 10^3/uL Mean Platelet Volume 10.5 6.9-10.8 fL Neutrophils (%) (Auto) 71.3 37.0-80.0 % Lymphocytes (%) (Auto) 14.6 10.0-50.0 % Monocytes (%) (Auto) 10.1 0.0-12.0 % Eosinophils (%) (Auto) 3.3 0.0-7.0 % Basophils (%) (Auto) 0.7 0.0-2.0 % Neutrophils # (Auto) 8.6 1.6-8.6 10 ^3/uL Lymphocytes # (Auto) 1.8 0.4-5.4 10 ^3/uL Monocytes # (Auto) 1.2 0-1.3 10 ^3/uL Eosinophils # (Auto) 0.4 0-0.8 10 ^3/uL Basophils # (Auto) 0.1 0-0.2 10 ^3/uL Nucleated Red Blood Cells 0.0 % Sodium Level 137 136-145 mmol/L Potassium Level 4.3 3.5-5.1 mmol/L Chloride Level 101 98-107 mmol/L Carbon Dioxide Level 22 20-31 mmol/L Anion Gap 14 5-15 Blood Urea Nitrogen 24 H 9-23 mg/dL Creatinine 2.93 H 0.550-1.02 mg/dL Glomerular Filtration Rate Calc 16 >90 mL/min BUN/Creatinine Ratio 8.2 L 10.0-20.0 Serum Glucose 141 H 74-106 mg/dL Calcium Level 9.9 8.7-10.4 mg/dL Time of 1ST Reevaluation: 12:30 Reevaluation 1ST: Unchanged Patient Education/Counseling: Diagnosis, Treatment, Prognosis Family Education/Counseling: No Family Present Comments Patient is not septic Medical Decision Making: A 80-year-old female with a history of hypertension and coronary artery disease presents via EMS following a syncopal episode at home. Syncope in an elderly patient with known cardiac disease raises concern for a spectrum of high-risk conditions including arrhythmia, acute coronary syndrome, orthostatic hypotensi on, aortic stenosis, pulmonary embolism, acute kidney injury, sepsis, electrolyte disturbance, and cerebrovascular etiologies. Workup: EKG: non-ischemic; no ST/T changes or arrhythmias identified. CBC: benign; no anemia or leukocytosis. BMP: creatinine 2.93, significantly elevated and concerning for acute kidney injury, dehydration, or prerenal azotemia contributing to syncope. Troponin: negative, lowering but not eliminating early ACS risk in a high-risk patient. CT brain: demonstrates chronic atrophy and old lacunar infarcts; no acute intracranial pathology. Chest X-ray: benign; no acute cardiopulmonary process. UA: pending at time of note, needed to assess for infection or prerenal causes of POONAM. ED Course: While in the ED, the patient became acutely hypotensive, with blood pressure dropping from 128/101 to 91/59, indicating hemodynamic instability following her syncopal episode. IV fluid resuscitation was initiated with improvement. She remained on continuous cardiac monitoring given concern for dysrhythmias. Serial reassessments were performed to evaluate for worsening perfusion, repeat syncope, or progression of POONAM. Given her advanced age, cardiac history, new hypotension, and acute kidney injury, there is significant concern for early shock physiology, arrhythmia, dehydration, or other life-threatening etiologies. She is not safe for outpatient management. Risk / Disposition: The patient requires inpatient admission for cardiac monitoring, trending of troponins and renal function, continued fluid resuscitation, evaluation for arrhythmia or cardiogenic causes of syncope, and consideration of nephrology or cardiology consultation. Given her hypotension in the ED and POONAM, this encounter required high-[place]ity [place] [address] (Level 5). Critical Care 39 Minutes The patient required critical care due to a high probability of imminent or life-threatening deterioration stemming from acute hypotension, syncope, and acute kidney injury, placing her at risk for shock, arrhythmia, acute coronary syndrome, renal failure, and cerebral hypoperfusion. Critical care activities included: Management and treatment of hypotension with IV fluid resuscitation Continuous cardiac monitoring for arrhythmias Serial vital sign and perfusion assessments Interpretation of EKG, CT head, chest X-ray, and laboratory findings Evaluation and management of acute kidney injury Neurologic and cardiovascular reassessments Coordination of inpatient admission and potential specialty consultation High-level decision-making regarding differential diagnosis and stabilization A total of 39 minutes of critical care time was provided, exclusive of separately billable procedures. SEPSIS Sepsis Screen Date sepsis recognized/suspect: Oct 08, 2025 Time Sepsis recognized/suspect: 1140 Recent Procedure: No On Antibiotic Therapy: No Respiratory Rate >20: No Heart Rate >90: No Temp<36 C (96.8 F) or >38.3 C: No SBP <90 or MAP <65 mmHG: No New Acute Mental Status Change: No Is the patient on CPAP, BIPAP,: No Physician Orders Urinalysis (10/08/25 11:55) Chest Portable (10/08/25 11:55) Head Without Contrast (10/08/25 11:55) Electrocardigram (10/08/25 12:55) Electrocardigram (10/08/25 14:55) Sodium Chloride 0.9% (10/08/25 15:30) Vital Signs Date Time Temp Pulse Resp B/P (MAP) Pulse Ox O2 Delivery O2 Flow Rate FiO2 10/08/25 13:51 97.4 71 16 91/59 (70) 100 97.4 10/08/25 12:16 70 10/08/25 11:44 98.3 71 18 128/101 96 98.3 10/08/25 11:42 70 Laboratory Tests Test 10/08/25 13:12 White Blood Count 12.0 10^3/uL (4.4-10.8) H Departure 1 Departure Time of Disposition: 15:26 Impression: Primary Impression: Syncope and collapse Additional Impression: Generalized weakness Disposition: 09 ADMITTED INPATIENT Admit to: Tele Condition: Guarded Critical Care Note Critical Care Time?: Yes Stability Stability form required: No I personally scribed for GARETH DUDLEY MD ([email or web address]) on 10/08/25 at 12:16. Electronically submitted by Milo Meyer ([email or web address]). GARETH DUDLEY MD Oct 08, 2025 12:16
--- NOTE | 2025-10-08 12:27 | DVH ---
CHEST RADIOGRAPH Indication: syncope Technique: Single frontal view of the chest was obtained Comparison: XY CHEST PORTABLE on DOS: 09/15/25 FINDINGS: Lines and Tubes: None Lungs: No focal consolidation. Pleura: No effusion. No pneumothorax. Cardiomediastinal contours: Unremarkable Bones: No acute osseous abnormality. IMPRESSION: 1. No acute cardiopulmonary disease. 2. No significant change from 09/15/2025.
--- NOTE | 2025-10-08 12:59 | DVH ---
EXAM: CT HEAD WITHOUT CONTRAST INDICATION: syncope TECHNIQUE: CT of the head without intravenous contrast. Radiation Dose : 1. Head: CT Dose: CTDI volume is 53.5 mGy. Dose-length product is 966.52 mGy*cm The dose indicators for CT are the volume Computed Tomography (CT) Dose Index (CTDIvol) and the Dose Length Product (DLP), and are measured in units of mGy and mGy-cm, respectively. These indicators are not patient dose, but values generated from the CT scanner acquisition factors. The report includes radiation exposure data for exposures received during this examination. COMPARISON: None FINDINGS: There is no evidence of acute intracranial hemorrhage, extra-axial collection, mass effect, midline shift, herniation or hydrocephalus. The ventricles, sulci and cisterns are age appropriate. The multani-white differentiation is intact. Patchy periventricular and subcortical white matter hypoattenuation is nonspecific but may be related to small vessel ischemic disease. Generalized brain atrophy. Tiny old bilateral gangliocapsular lacunar infarcts. 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 Opacified left frontal and left sphenoid sinus. Remaining paranasal sinuses and mastoid air cells are clear. No acute osseous abnormality IMPRESSION: No acute intracranial abnormality. Atrophy and chronic small-vessel ischemic changes. 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
[2025-10-08 13:41] LABS: Hemoglobin 11.9 g/dL (12.2-16.2); Nucleated Red Blood Cells % 0.0 %
[2025-10-08 13:42] LABS: Hematocrit 36.4 % (36.0-46.0); Mean Corpuscular Hemoglobin 26.1 pg (28.0-32.0); Mean Corpuscular Volume 79.9 fL (80.0-100.0)
[2025-10-08 13:45] LABS: Chloride 101 mmol/L (98-107); Potassium 4.3 mmol/L (3.5-5.1); Sodium 137 mmol/L (136-145)
[2025-10-08 13:46] LABS: Anion Gap 14 (5-15); Calcium 9.9 mg/dL (8.7-10.4); Carbon Dioxide 22 mmol/L (20-31)
[2025-10-08 13:51] LABS: BUN/Creatinine Ratio 8.2 (10.0-20.0)
[2025-10-08 13:52] LABS: Blood Urea Nitrogen 24 mg/dL (9-23); Glucose 141 mg/dL (74-106)
[2025-10-08] MEDS: SODIUM CHLORIDE 0.9% 1,000 ML IV ONE (15:48)
--- NOTE | 2025-10-08 18:12 | DVHHP2 ---
Admitting Diagnosis: Syncopal History of Present Illness 80 year old female is brought in for syncopal episode. Patient family states patient had a stent placed last month at [facility] and has experience generalized weakness since stent was placed. She reports being sick for two days. While in the emergency department the patient was evaluated by the provider. Patient will be admitted for further evaluation and treatment. I discussed admission with the patient/family and is in agreement to treatment plan. Allergies: Coded Allergies: Penicillins (Verified Allergy, Severe, RASHES, 05/30/10) Acetaminophen (Verified Allergy, Unknown, 09/15/25) Codeine (Verified Allergy, Unknown, 09/15/25) Erythromycin (Verified Allergy, Unknown, 09/15/25) Hydrocodone (Verified Allergy, Unknown, 09/15/25) Sulfamethoxazole w/Trimethoprim (Verified Allergy, Unknown, 09/15/25) Tetracycline (Verified Allergy, Unknown, 10/08/25) Home Meds Active Scripts Aspirin (Aspir-Low) 81 Mg Tab, 81 MG PO DAILY for 30 Days, #30 TAB Prov:ELISABETH BEDOYA [facility] 09/17/25 Ticagrelor Base (BRILINTA) 90 Mg Tab, 90 MG PO BID for 30 Days, #60 TAB Prov:ELISABETH BEDOYA [facility] 09/17/25 Nifedipine (Nifedipine Er) 30 Mg Tab, 30 MG PO DAILY for 30 Days, #30 TAB Prov:ELISABETH BEDOYA [facility] 09/17/25 Hctz (Hydrochlorothiazide) 25 Mg Tab, 12.5 MG PO DAILY for 30 Days, #15 TAB Prov:ELISABETH BEDOYA [facility] 09/17/25 Carvedilol (COREG) 12.5 Mg Tab, 12.5 MG PO Q12HR for 30 Days, #60 TAB Prov:ELISABETH BEDOYA [facility] 09/17/25 Reported Medications Losartan Potassium (Losartan Potassium) 50 Mg Tab, 50 MG PO DAILY for 30 Days, MG 10/08/25 Atorvastatin Calcium (Lipitor) 10 Mg Tab, 20 MG PO, TAB 10/08/25 Alprazolam (Xanax) 1 Mg Tab, TID 05/30/10 Current Medications Current Medications Medications (Trade) Dose Ordered Sig/Dionna Route PRN Reason Start Time Stop Time Status Last Admin Levofloxacin/ Dextrose 100 ml @ 100 mls/hr Q48H IV 10/09/25 18:00 10/09/25 16:14 DC Aspirin 81 mg DAILY PO 10/09/25 10:00 10/09/25 10:48 Ticagrelor (Brilinta) 90 mg BID PO 10/09/25 10:00 10/09/25 10:48 Sodium Chloride 1,000 ml @ 60 mls/hr [id number] IV 10/09/25 14:45 10/09/25 14:45 Levofloxacin 50 ml @ 50 mls/hr Q48H IV 10/10/25 18:00 Alprazolam (Xanax Tablet) 1 mg [id number] PRN PO ANXIETY 10/09/25 16:45 10/09/25 16:48 DC Alprazolam (Xanax Tablet) 1 mg [id number] PRN PO ANXIETY 10/09/25 19:30 Review of Systems Syncopal Generalized weakness Vital Signs Vital Signs Date Time Temp Pulse Resp B/P (MAP) Pulse Ox O2 Delivery O2 Flow Rate FiO2 10/09/25 16:10 97.2 86 20 139/100 (113) 90 97.2 10/09/25 16:06 Room Air* 0 21 Physical Exam General Appearance: alert, no distress HEENT: EOMI, PERRLA, normal external inspect of ears, no icterus, no nasal drainage Neck: no carotid bruit, no jugular venous distention (JVD), no lymphadenopathy Chest: normal thorax Respiratory: clear to auscultation, normal air movement Cardiovascular: regular rate and rhythm, no diastolic murmur, no jugular venous distention (JVD), no rub, no systolic murmur Abdominal: soft, no hepatomegaly, no mass, no splenomegaly, no tenderness Musculoskeletal: no joint tenderness, no swelling Extremities: normal pulses, no calf tenderness, no clubbing, no cyanosis, no edema Skin: no bruising, no jaundice, no rash Neurological: alert, No focal deficit SEPSIS Sepsis Screen Date sepsis recognized/suspect: Oct 08, 2025 Time Sepsis recognized/suspect: 114 Recent Procedure: No On Antibiotic Therapy: No Respiratory Rate >20: No Heart Rate >90: No Temp<36 C (96.8 F) or >38.3 C: No SBP <90 or MAP <65 mmHG: No New Acute Mental Status Change: No Is the patient on CPAP, BIPAP,: No Physician Orders Chest Portable (10/08/25 11:55) Head Without Contrast (10/08/25 11:55) Electrocardigram (10/08/25 12:55) Electrocardigram (10/08/25 14:55) Admit (10/08/25 18:06) Code Status (10/08/25 18:06) Oxygen Per Hour (10/08/25 18:06) Hydrocodone-Acet 5/325mg Tab ([place] 5/32 (10/08/25 18:15) Temazepam (Restoril) (10/08/25 18:15) Ondansetron Hcl (Zofran) (10/08/25 18:15) Docusate Sodium Capsule (Colace Capsule) (10/08/25 18:15) Cardiac Diet-2gna,Lofat,Lochol (10/08/25 Dinner) Pt Request For Service (10/08/25 18:06) Carotid Duplx W Color Dop (10/08/25 18:06) Condition: Fair (10/08/25 18:06) Sequential Compression Device (10/08/25 ) *[facility] (10/08/25 18:06) Nitroglycerin Sublingual (Ntrostat Subli (10/08/25 18:15) Stat Ekg For Chest Pain (10/08/25 18:06) Notify Md Of Changes From Base (10/08/25 18:06) Lunchroom Mother For 24 Hours (10/08/25 18:06) Emergency Dysrhythmia Protocol (10/08/25 18:06) Rhythm Strips Once Every Shift (10/08/25 18:06) Oxygen By Nasal Cannula (10/08/25 18:06) Diphenhydramine Injection (Benadryl Inje (10/08/25 18:15) Kidney (10/08/25 18:06) Pharmacy Clarification: (10/08/25 18:27) *Consult Dr. Mark (10/09/25 08:44) Basic Metabolic Panel (10/10/25 04:00) Complete Blood Count (10/10/25 04:00) Aspirin Tablet (10/09/25 10:00) Ticagrelor (Brilinta) (10/09/25 10:00) Sodium Chloride 0.9% (10/09/25 14:45) Levofloxacin 250mg (Levaquin 250mg) (10/10/25 18:00) Alprazolam Tablet (Xanax Tablet) (10/09/25 19:30) Vital Signs Date Time Temp Pulse Resp B/P (MAP) Pulse Ox O2 Delivery O2 Flow Rate FiO2 10/09/25 16:10 97.2 86 20 139/100 (113) 90 97.2 10/09/25 16:06 70 20 90 Room Air* 0 21 10/09/25 13:00 98.0 71 16 133/51 (78) 95 98.0 10/09/25 09:00 98.7 74 16 115/46 (69) 93 98.7 10/09/25 08:00 Room Air* 0 21 10/09/25 05:01 98.3 74 19 108/59 (75) 96 98.3 10/08/25 23:15 97.6 78 17 139/50 (79) 98 97.6 10/08/25 23:13 Room Air* 0 21 10/08/25 21:42 97.7 69 18 108/58 (75) 95 97.7 10/08/25 21:42 97.7 69 18 108/58 (75) 95 97.7 10/08/25 21:42 69 18 95 Room Air* 0 21 10/08/25 17:46 97.7 72 16 133/55 (81) 97.7 10/08/25 13:51 97.4 71 16 91/59 (70) 100 97.4 10/08/25 12:16 70 10/08/25 11:44 98.3 71 18 128/101 96 98.3 10/08/25 11:42 70 Laboratory Tests Test 10/08/25 13:12 10/09/25 05:06 White Blood Count 12.0 10^3/uL (4.4-10.8) H 12.9 10^3/uL (4.4-10.8) H Medications Medications Dose Ordered Sig/Dionna Route Start Time Stop Time Status Last Admin Dose Admin Alprazolam 0.25 mg ONCE ONCE PO 10/09/25 09:15 10/09/25 09:16 DC 10/09/25 10:48 Aspirin 81 mg DAILY PO 10/09/25 10:00 10/09/25 10:48 Sodium Chloride 1,000 ml @ 60 mls/hr [id number] IV 10/09/25 14:45 10/09/25 14:45 Ticagrelor 90 mg BID PO 10/09/25 10:00 10/09/25 10:48 Results Labs Test 10/09/25 05:50 10/09/25 05:06 10/08/25 14:22 Range/Units Urine Color Light-yellow Yellow Urine Clarity Turbid H Clear Urine pH 5.0 5.0-9.0 Urine Specific [place] 1.013 1.001-1.035 Urine Protein Trace H Negative Urine Ketones Negative Negative Urine Blood Negative Negative /uL Urine Nitrite Negative Negative Urine Bilirubin Negative Negative Urine Urobilinogen Normal Negative mg/dL Urine Leukocyte Esterase Negative Negative /uL Urine RBC 1 0 - 4 /hpf Urine Microscopic WBC 3 0-5 /HPF Urine Squamous Epithelial Cells Mod <5 /hpf Urine Bacteria Mod H None Seen /hpf Urine Glucose Normal Normal mg/dL White Blood Count 12.9 H 4.4-10.8 10^3/uL Red Blood Count 4.21 4.0-5.20 10^6/uL Hemoglobin 11.1 L 12.2-16.2 g/dL Hematocrit 33.3 L 36.0-46.0 % Mean Corpuscular Volume 79.0 L 80.0-100.0 fL Mean Corpuscular Hemoglobin 26.3 L 28.0-32.0 pg Mean Corpuscular Hemoglobin Concent 33.3 32.0-36.0 g/dL Red Cell Distribution Width 15.4 H 11.8-14.3 % Platelet Count 254 140-450 10^3/uL Mean Platelet Volume 10.4 6.9-10.8 fL Neutrophils (%) (Auto) 65.5 37.0-80.0 % Lymphocytes (%) (Auto) 16.8 10.0-50.0 % Monocytes (%) (Auto) 11.8 0.0-12.0 % Eosinophils (%) (Auto) 5.2 0.0-7.0 % Basophils (%) (Auto) 0.7 0.0-2.0 % Neutrophils # (Auto) 8.4 1.6-8.6 10 ^3/uL Lymphocytes # (Auto) 2.2 0.4-5.4 10 ^3/uL Monocytes # (Auto) 1.5 H 0-1.3 10 ^3/uL Eosinophils # (Auto) 0.7 0-0.8 10 ^3/uL Basophils # (Auto) 0.1 0-0.2 10 ^3/uL Nucleated Red Blood Cells 0.0 % Sodium Level 140 136-145 mmol/L Potassium Level 3.7 3.5-5.1 mmol/L Chloride Level 104 98-107 mmol/L Carbon Dioxide Level 20 20-31 mmol/L Anion Gap 16 H 5-15 Blood Urea Nitrogen 30 H 9-23 mg/dL Creatinine 2.56 H 0.550-1.02 mg/dL Glomerular Filtration Rate Calc 19 >90 mL/min BUN/Creatinine Ratio 11.7 10.0-20.0 Serum Glucose 95 74-106 mg/dL Calcium Level 9.3 8.7-10.4 mg/dL Total Bilirubin 0.7 0.2-1.0 mg/dL Aspartate Amino Transferase (AST) 26 13-40 U/L Alanine Aminotransferase (ALT) 21 7-40 U/L Alkaline Phosphatase 109 46-116 U/L Total Protein 7.6 5.7-8.2 g/dL Albumin 4.2 3.2-4.8 g/dL Hepatitis B Surface Antigen Negative Negative Hepatitis C Antibody Negative Negative Troponin I High Sensitivity 34 </=34 ng/L Microbiology Date/Time Source Procedure Growth Status 10/09/25 04:30 Nose MRSA Screen - Final Complete Admitting Diagnosis: - Dyspnea r/t fluid overload - CAD status post cardiac stent at [facility] Cardiology consult, medication, resume DAPT,monitoring - Syncope Cardiology consult, monitoring - POONAM r/t vasomotor nephropathy Nephrology consult, renal ultrasound ,medication, monitoring - Hypotension Blood pressure medications on hold, monitoring -Acute cystitis without hematuria monitoring Plan discussed with: Patient, Other PAWAN PORRAS NP Oct 08, 2025 18:12
[2025-10-08] MEDS ORDERED: NITROGLYCERIN 0.4 MG SL TAB SL PRN (18:15)
[2025-10-08] MEDS ORDERED: ONDANSETRON HCL 4 MG/2 ML VIAL IV PRN (18:15)
[2025-10-08] MEDS ORDERED: TEMAZEPAM 15 MG CAP PO PRN (18:15)
[2025-10-08] MEDS ORDERED: HYDROcodone-ACET 5/325MG TAB PO PRN (18:15)
[2025-10-08] MEDS ORDERED: diphenhydrAMINE HCL 50 MG/1 ML VL IV PRN (18:15)
[2025-10-08] MEDS: SODIUM CHLORIDE 0.9% 1,000 ML IV SCH (18:57)
--- NOTE | 2025-10-08 19:32 | DVH ---
Carotid Duplex Date: 10/08/2025 07:01 PM Clinical History: syncope Comparison: ECHO 2D MODE CARDIAC DOP on DOS: 09/16/25 Technique: Duplex Doppler evaluation of the extracranial carotid and vertebral arteries including color Doppler and spectral/pulsed waveform analysis was performed. Findings: RIGHT SIDE: The peak systolic velocities are 51 cm/s in the distal CCA and 87 cm/s in the proximal ICA.The ICA/CCA ratio is less than 2. The external carotid artery is patent with peak systolic velocity of 55 cm/s proximally. There is appropriate antegrade flow in the right vertebral artery. LEFT SIDE: The peak systolic velocities are 72 cm/s in the distal CCA and 88 cm/s in the proximal ICA.. The ICA/CCA ratio is less than 2. The external carotid artery is patent with peak systolic velocity of 42 cm/s proximally. There is appropriate antegrade flow in the left vertebral artery. IMPRESSION: 1. No hemodynamically significant stenosis noted in the right carotid system. 2. No hemodynamically significant stenosis noted in the left carotid system. 3. Reference: Radiology 2003; [id number]
--- NOTE | 2025-10-08 19:46 | DVH ---
INDICATION: renal failure TECHNIQUE: Multiple real-time sonographic images of the kidneys and bladder were obtained. COMPARISON: None FINDINGS: The right kidney measures 11.6 cm in length, which is normal in size. There is normal echogenicity of the right kidney. No hydronephrosis. The left kidney measures 10.8 cm in length, which is normal in size. There is normal echogenicity of the left kidney. No hydronephrosis. No intraluminal mass is seen in the bladder. The right ureteral jet is not visualized during the study. The left ureteral jet is visualized. At the time of examination, the bladder volume is approximately 248 cc. IMPRESSION: Normal sonographic appearance of the kidneys. No hydronephrosis.
[2025-10-08 21:42] VITALS: PULSE 69; RESP 18; O2SAT 95
[2025-10-08 23:15] VITALS: BP 139/50; PULSE 78; RESP 17; TEMP 97.6; O2SAT 98
[2025-10-08] MEDS ORDERED: ATOR10TA PO (23:52)
[2025-10-08] MEDS ORDERED: LOSA-534 PO (23:52)
[2025-10-09] VITALS (7 sets, daily range): BP systolic 108–139; BP diastolic 46–100; PULSE 68–86; RESP 16–20; TEMP 97.2–98.7; O2SAT 90–97
[2025-10-09 05:58] LABS: Hemoglobin 11.1 g/dL (12.2-16.2); Nucleated Red Blood Cells % 0.0 %
[2025-10-09 06:02] LABS: Hematocrit 33.3 % (36.0-46.0); Mean Corpuscular Hemoglobin 26.3 pg (28.0-32.0); Mean Corpuscular Volume 79.0 fL (80.0-100.0)
[2025-10-09 06:18] LABS: Alanine Aminotransferase 21 U/L (7-40); Alkaline Phosphatase 109 U/L (46-116); Anion Gap 16 (5-15); BUN/Creatinine Ratio 11.7 (10.0-20.0); Blood Urea Nitrogen 30 mg/dL (9-23); Calcium 9.3 mg/dL (8.7-10.4); Carbon Dioxide 20 mmol/L (20-31); Chloride 104 mmol/L (98-107); Glucose 95 mg/dL (74-106); Potassium 3.7 mmol/L (3.5-5.1); Sodium 140 mmol/L (136-145); Total Protein 7.6 g/dL (5.7-8.2)
[2025-10-09 06:19] LABS: Albumin 4.2 g/dL (3.2-4.8); Bilirubin, Total 0.7 mg/dL (0.2-1.0)
[2025-10-09 06:26] LABS: Urine Protein, UAD TRACE (Negative)
--- NOTE | 2025-10-09 08:08 | DVHPN2 ---
Progress Note - Dictate Date Seen: Oct 09, 2025 Has the PT tested + for MRSA If YES, has PT been informed?: No Medical Necessity Reason Pt with a Central, PICC or Fol: No vital signs Vital Sign Date Time Temp Pulse Resp B/P (MAP) Pulse Ox O2 Delivery O2 Flow Rate FiO2 10/09/25 05:01 98.3 74 19 108/59 (75) 96 98.3 10/08/25 23:13 Room Air* 0 21 Total Intake and Output 10/08/25 10/08/25 10/09/25 15:00 23:00 07:00 Intake Total 1460 ml Balance 1460 ml medications Current Medications Medications Dose Ordered Sig/Dionna Route Start Time Stop Time Status Last Admin Dose Admin Sodium Chloride 1,000 ml @ 120 mls/hr Q8H20M IV 10/08/25 18:15 10/08/25 18:57 120 MLS/HR Acetaminophen/ Hydrocodone Bitart 1 tab Q4HP PRN PO 10/08/25 18:15 Hold Temazepam 15 mg QHSP PRN PO 10/08/25 18:15 Ondansetron HCl 4 mg Q4HP PRN IV 10/08/25 18:15 Docusate Sodium 100 mg BIDPRN PRN PO 10/08/25 18:15 Nitroglycerin 0.4 mg Q5MINP PRN SL 10/08/25 18:15 Diphenhydramine HCl 25 mg Q6HP PRN IV 10/08/25 18:15 Levofloxacin/ Dextrose 100 ml @ 100 mls/hr Q48H IV 10/09/25 18:00 objective General Appearance: alert, no distress HEENT: EOMI, PERRLA, normal external inspect of ears, no icterus, no nasal drainage Neck: no carotid bruit, no jugular venous distention (JVD), no lymphadenopathy Chest: normal thorax Respiratory: clear to auscultation, normal air movement Cardiovascular: regular rate and rhythm, no diastolic murmur, no jugular venous distention (JVD), no rub, no systolic murmur Abdominal: soft, no hepatomegaly, no mass, no splenomegaly, no tenderness Musculoskeletal: no joint tenderness, no swelling Extremities: normal pulses, no calf tenderness, no clubbing, no cyanosis, no edema Skin: no bruising, no jaundice, no rash Neurological: alert, No focal deficit laboratory and microbiology Laboratory Tests 10/09/25 05:06 Test 10/09/25 05:06 Range/Units Serum Glucose 95 74-106 mg/dL Problem List - Dyspnea r/t fluid overload - CAD status post cardiac stent at [facility] Cardiology consult, medication, resume DAPT,monitoring - Syncope Cardiology consult, monitoring - POONAM r/t vasomotor nephropathy Nephrology consult, renal ultrasound ,medication, monitoring - Hypotension Blood pressure medications on hold, monitoring -Acute cystitis without hematuria monitoring Assessment/Plan Subjective Patient is awake and alert. Objective Patient was admitted for generalized weakness and shortness of breath. Patient states she had a stent placed 1 week ago at [facility]. She was at from [facility]. Patient currently denies any chest pain at this time. Plan Kidney ultrasound. Patient is in acute renal failure most likely vasomotor nephropathy. Cardiology consult for CAD. Continue dual antiplatelet therapy. Monitor on EKG. Continue IV fluids for POONAM. Continue PPI. Start antibiotics for UTI. Plan discussed with: Patient, Other PAWAN PORRAS NP Oct 09, 2025 08:08
--- NOTE | 2025-10-09 08:58 | DVHINCON2 ---
Date of service: Oct 09, 2025 History of Present Illness 80 yo F with hx of OH at [facility] , s/p PCI to RCA at [facility] last month , on dapt, admitted for weakness and POONAM. pt was here in august for severe HTN but had no major symptoms. now she has CKD. Past Medical History reviewed Family History: Cerebrovascular accident (CVA) G8 MOTHER Hypertension G8 MOTHER Allergies: Coded Allergies: Penicillins (Verified Allergy, Severe, RASHES, 05/30/10) Acetaminophen (Verified Allergy, Unknown, 09/15/25) Codeine (Verified Allergy, Unknown, 09/15/25) Erythromycin (Verified Allergy, Unknown, 09/15/25) Hydrocodone (Verified Allergy, Unknown, 09/15/25) Sulfamethoxazole w/Trimethoprim (Verified Allergy, Unknown, 09/15/25) Tetracycline (Verified Allergy, Unknown, 10/08/25) Home Meds Active Scripts Aspirin (Aspir-Low) 81 Mg Tab, 81 MG PO DAILY for 30 Days, #30 TAB Prov:ELISABETH BEDOYA [facility] 09/17/25 Ticagrelor Base (BRILINTA) 90 Mg Tab, 90 MG PO BID for 30 Days, #60 TAB Prov:ELISABETH BEDOYA [facility] 09/17/25 Nifedipine (Nifedipine Er) 30 Mg Tab, 30 MG PO DAILY for 30 Days, #30 TAB Prov:ELISABETH BEDOYA [facility] 09/17/25 Hctz (Hydrochlorothiazide) 25 Mg Tab, 12.5 MG PO DAILY for 30 Days, #15 TAB Prov:ELISABETH BEDOYA [facility] 09/17/25 Carvedilol (COREG) 12.5 Mg Tab, 12.5 MG PO Q12HR for 30 Days, #60 TAB Prov:ELISABETH BEDOYA [facility] 09/17/25 Reported Medications Losartan Potassium (Losartan Potassium) 50 Mg Tab, 50 MG PO DAILY for 30 Days, MG 10/08/25 Atorvastatin Calcium (Lipitor) 10 Mg Tab, 20 MG PO, TAB 10/08/25 Alprazolam (Xanax) 1 Mg Tab, TID 05/30/10 Current Medications Current Medications Medications (Trade) Dose Ordered Sig/Dionna Route PRN Reason Start Time Stop Time Status Last Admin Sodium Chloride 1,000 ml @ 120 mls/hr Q8H20M IV 10/08/25 18:15 10/08/25 18:57 Acetaminophen/ Hydrocodone Bitart ([place] 5/325MG Tab) 1 tab Q4HP PRN PO MODERATE PAIN (4-6 PAIN SCALE) 10/08/25 18:15 Hold Temazepam (Restoril) 15 mg QHSP PRN PO FOR INSOMNIA 10/08/25 18:15 Ondansetron HCl (Zofran) 4 mg Q4HP PRN IV NAUSEA / VOMITING 10/08/25 18:15 Docusate Sodium (Colace Capsule) 100 mg BIDPRN PRN PO FOR CONSTIPATION 10/08/25 18:15 Nitroglycerin (Ntrostat Sublingual) 0.4 mg Q5MINP PRN SL FOR CHEST PAIN 10/08/25 18:15 Diphenhydramine HCl (Benadryl Injection) 25 mg Q6HP PRN IV FOR ITCHING 10/08/25 18:15 Levofloxacin/ Dextrose 100 ml @ 100 mls/hr Q48H IV 10/09/25 18:00 Review of Systems 10 pt ros otherwise negative Vital Signs Vital Signs Date Time Temp Pulse Resp B/P (MAP) Pulse Ox O2 Delivery O2 Flow Rate FiO2 10/09/25 05:01 98.3 74 19 108/59 (75) 96 98.3 10/08/25 23:13 Room Air* 0 21 Physical Exam n Labs/Diagnostic Data Labs Test 10/09/25 05:50 10/09/25 05:06 10/08/25 14:22 Range/Units Urine Color Light-yellow Yellow Urine Clarity Turbid H Clear Urine pH 5.0 5.0-9.0 Urine Specific [place] 1.013 1.001-1.035 Urine Protein Trace H Negative Urine Ketones Negative Negative Urine Blood Negative Negative /uL Urine Nitrite Negative Negative Urine Bilirubin Negative Negative Urine Urobilinogen Normal Negative mg/dL Urine Leukocyte Esterase Negative Negative /uL Urine RBC 1 0 - 4 /hpf Urine Microscopic WBC 3 0-5 /HPF Urine Squamous Epithelial Cells Mod <5 /hpf Urine Bacteria Mod H None Seen /hpf Urine Glucose Normal Normal mg/dL White Blood Count 12.9 H 4.4-10.8 10^3/uL Red Blood Count 4.21 4.0-5.20 10^6/uL Hemoglobin 11.1 L 12.2-16.2 g/dL Hematocrit 33.3 L 36.0-46.0 % Mean Corpuscular Volume 79.0 L 80.0-100.0 fL Mean Corpuscular Hemoglobin 26.3 L 28.0-32.0 pg Mean Corpuscular Hemoglobin Concent 33.3 32.0-36.0 g/dL Red Cell Distribution Width 15.4 H 11.8-14.3 % Platelet Count 254 140-450 10^3/uL Mean Platelet Volume 10.4 6.9-10.8 fL Neutrophils (%) (Auto) 65.5 37.0-80.0 % Lymphocytes (%) (Auto) 16.8 10.0-50.0 % Monocytes (%) (Auto) 11.8 0.0-12.0 % Eosinophils (%) (Auto) 5.2 0.0-7.0 % Basophils (%) (Auto) 0.7 0.0-2.0 % Neutrophils # (Auto) 8.4 1.6-8.6 10 ^3/uL Lymphocytes # (Auto) 2.2 0.4-5.4 10 ^3/uL Monocytes # (Auto) 1.5 H 0-1.3 10 ^3/uL Eosinophils # (Auto) 0.7 0-0.8 10 ^3/uL Basophils # (Auto) 0.1 0-0.2 10 ^3/uL Nucleated Red Blood Cells 0.0 % Sodium Level 140 136-145 mmol/L Potassium Level 3.7 3.5-5.1 mmol/L Chloride Level 104 98-107 mmol/L Carbon Dioxide Level 20 20-31 mmol/L Anion Gap 16 H 5-15 Blood Urea Nitrogen 30 H 9-23 mg/dL Creatinine 2.56 H 0.550-1.02 mg/dL Glomerular Filtration Rate Calc 19 >90 mL/min BUN/Creatinine Ratio 11.7 10.0-20.0 Serum Glucose 95 74-106 mg/dL Calcium Level 9.3 8.7-10.4 mg/dL Total Bilirubin 0.7 0.2-1.0 mg/dL Aspartate Amino Transferase (AST) 26 13-40 U/L Alanine Aminotransferase (ALT) 21 7-40 U/L Alkaline Phosphatase 109 46-116 U/L Total Protein 7.6 5.7-8.2 g/dL Albumin 4.2 3.2-4.8 g/dL Troponin I High Sensitivity 34 </=34 ng/L Assessment hx of cad s/p pci htn HL copd Poonam weakness Plan/Recommendation need to restart dapt leena statin IVF as needed abx per hospitlaist Plan discussed with: Patient MICHELE CRUMP MD Oct 09, 2025 08:58
[2025-10-09] MEDS: ALPRAZolam 0.25 MG TAB PO ONE (10:48)
[2025-10-09] MEDS: TICAGRELOR 90 MG TAB PO SCH (10:48)
[2025-10-09] MEDS: SODIUM CHLORIDE 0.9% 1,000 ML IV SCH (14:45)
--- NOTE | 2025-10-09 14:46 | DVHINCON2 ---
Date of service: Oct 09, 2025 Referring Physician Hospitalist Reason for Consultation Acute kidney injury History of Present Illness 80-year-old female past medical history of hypertension and coronary artery disease patient was recently diagnosed with NSTEMI in July was transferred to [facility] was status post stent placement of the RCA was also noted to have grade 2 diastolic heart failure. She was recommended for cardiac rehab. She reports she received new medications post discharge from [facility] she now presents to the hospital complaining of a syncopal episode reports nearly falling over from a seated position was caught by a family member denies head trauma nephrology is consulted due to elevated creatinine level creatinine 2.93 on this admission records from [facility] shows a creatinine of 1.0 in July Allergies: Coded Allergies: Penicillins (Verified Allergy, Severe, RASHES, 05/30/10) Acetaminophen (Verified Allergy, Unknown, 09/15/25) Codeine (Verified Allergy, Unknown, 09/15/25) Erythromycin (Verified Allergy, Unknown, 09/15/25) Hydrocodone (Verified Allergy, Unknown, 09/15/25) Sulfamethoxazole w/Trimethoprim (Verified Allergy, Unknown, 09/15/25) Tetracycline (Verified Allergy, Unknown, 10/08/25) Home Meds Active Scripts Aspirin (Aspir-Low) 81 Mg Tab, 81 MG PO DAILY for 30 Days, #30 TAB Prov:ELISABETH BEDOYA [facility] 09/17/25 Ticagrelor Base (BRILINTA) 90 Mg Tab, 90 MG PO BID for 30 Days, #60 TAB Prov:ELISABETH BEDOYA [facility] 09/17/25 Nifedipine (Nifedipine Er) 30 Mg Tab, 30 MG PO DAILY for 30 Days, #30 TAB Prov:ELISABETH BEDOYA [facility] 09/17/25 Hctz (Hydrochlorothiazide) 25 Mg Tab, 12.5 MG PO DAILY for 30 Days, #15 TAB Prov:ELISABETH BEDOYA [facility] 09/17/25 Carvedilol (COREG) 12.5 Mg Tab, 12.5 MG PO Q12HR for 30 Days, #60 TAB Prov:ELISABETH BEDOYA [facility] 09/17/25 Reported Medications Losartan Potassium (Losartan Potassium) 50 Mg Tab, 50 MG PO DAILY for 30 Days, MG 10/08/25 Atorvastatin Calcium (Lipitor) 10 Mg Tab, 20 MG PO, TAB 10/08/25 Alprazolam (Xanax) 1 Mg Tab, TID 05/30/10 Current Medications Current Medications Medications (Trade) Dose Ordered Sig/Dionna Route PRN Reason Start Time Stop Time Status Last Admin Sodium Chloride 1,000 ml @ 120 mls/hr Q8H20M IV 10/08/25 18:15 10/08/25 18:57 Acetaminophen/ Hydrocodone Bitart ([place] 5/325MG Tab) 1 tab Q4HP PRN PO MODERATE PAIN (4-6 PAIN SCALE) 10/08/25 18:15 Hold Temazepam (Restoril) 15 mg QHSP PRN PO FOR INSOMNIA 10/08/25 18:15 Ondansetron HCl (Zofran) 4 mg Q4HP PRN IV NAUSEA / VOMITING 10/08/25 18:15 Docusate Sodium (Colace Capsule) 100 mg BIDPRN PRN PO FOR CONSTIPATION 10/08/25 18:15 Nitroglycerin (Ntrostat Sublingual) 0.4 mg Q5MINP PRN SL FOR CHEST PAIN 10/08/25 18:15 Diphenhydramine HCl (Benadryl Injection) 25 mg Q6HP PRN IV FOR ITCHING 10/08/25 18:15 Levofloxacin/ Dextrose 100 ml @ 100 mls/hr Q48H IV 10/09/25 18:00 Aspirin 81 mg DAILY PO 10/09/25 10:00 10/09/25 10:48 Ticagrelor (Brilinta) 90 mg BID PO 10/09/25 10:00 10/09/25 10:48 Family History: Cerebrovascular accident (CVA) G8 MOTHER Hypertension G8 MOTHER Review of Systems Syncope H&P Exam Vital Signs/I&O Vital Sign Date Time Temp Pulse Resp B/P (MAP) Pulse Ox O2 Delivery O2 Flow Rate FiO2 10/09/25 05:01 98.3 74 19 108/59 (75) 96 98.3 10/08/25 23:13 Room Air* 0 21 Intake and Output 10/08/25 10/09/25 19:00 07:00 Intake Total 1000 ml 460 ml Balance 1000 ml 460 ml Intake IV Total 1000 ml 460 ml # Voids 2 Physical Exam Elderly female not in acute distress abdomen is soft no pitting edema Labs/Diagnostic Data Labs/Diagnostic Data Laboratory Tests Test 10/09/25 05:50 10/09/25 05:06 10/08/25 14:22 10/08/25 13:12 Range/Units Urine Color Light-yellow Yellow Urine Clarity Turbid H Clear Urine pH 5.0 5.0-9.0 Urine Specific [place] 1.013 1.001-1.035 Urine Protein Trace H Negative Urine Ketones Negative Negative Urine Blood Negative Negative /uL Urine Nitrite Negative Negative Urine Bilirubin Negative Negative Urine Urobilinogen Normal Negative mg/dL Urine Leukocyte Esterase Negative Negative /uL Urine RBC 1 0 - 4 /hpf Urine Microscopic WBC 3 0-5 /HPF Urine Squamous Epithelial Cells Mod <5 /hpf Urine Bacteria Mod H None Seen /hpf Urine Glucose Normal Normal mg/dL White Blood Count 12.9 H 12.0 H 4.4-10.8 10^3/uL Red Blood Count 4.21 4.56 4.0-5.20 10^6/uL Hemoglobin 11.1 L 11.9 L 12.2-16.2 g/dL Hematocrit 33.3 L 36.4 36.0-46.0 % Mean Corpuscular Volume 79.0 L 79.9 L 80.0-100.0 fL Mean Corpuscular Hemoglobin 26.3 L 26.1 L 28.0-32.0 pg Mean Corpuscular Hemoglobin Concent 33.3 32.7 32.0-36.0 g/dL Red Cell Distribution Width 15.4 H 15.5 H 11.8-14.3 % Platelet Count 254 278 140-450 10^3/uL Mean Platelet Volume 10.4 10.5 6.9-10.8 fL Neutrophils (%) (Auto) 65.5 71.3 37.0-80.0 % Lymphocytes (%) (Auto) 16.8 14.6 10.0-50.0 % Monocytes (%) (Auto) 11.8 10.1 0.0-12.0 % Eosinophils (%) (Auto) 5.2 3.3 0.0-7.0 % Basophils (%) (Auto) 0.7 0.7 0.0-2.0 % Neutrophils # (Auto) 8.4 8.6 1.6-8.6 10 ^3/uL Lymphocytes # (Auto) 2.2 1.8 0.4-5.4 10 ^3/uL Monocytes # (Auto) 1.5 H 1.2 0-1.3 10 ^3/uL Eosinophils # (Auto) 0.7 0.4 0-0.8 10 ^3/uL Basophils # (Auto) 0.1 0.1 0-0.2 10 ^3/uL Nucleated Red Blood Cells 0.0 0.0 % Sodium Level 140 137 136-145 mmol/L Potassium Level 3.7 4.3 3.5-5.1 mmol/L Chloride Level 104 101 98-107 mmol/L Carbon Dioxide Level 20 22 20-31 mmol/L Anion Gap 16 H 14 5-15 Blood Urea Nitrogen 30 H 24 H 9-23 mg/dL Creatinine 2.56 H 2.93 H 0.550-1.02 mg/dL Glomerular Filtration Rate Calc 19 16 >90 mL/min BUN/Creatinine Ratio 11.7 8.2 L 10.0-20.0 Serum Glucose 95 141 H 74-106 mg/dL Calcium Level 9.3 9.9 8.7-10.4 mg/dL Total Bilirubin 0.7 0.2-1.0 mg/dL Aspartate Amino Transferase (AST) 26 13-40 U/L Alanine Aminotransferase (ALT) 21 7-40 U/L Alkaline Phosphatase 109 46-116 U/L Total Protein 7.6 5.7-8.2 g/dL Albumin 4.2 3.2-4.8 g/dL Troponin I High Sensitivity 34 32 </=34 ng/L Microbiology Date/Time Source Procedure Growth Status 10/09/25 04:30 Nose MRSA Screen - Final Complete Assessment 80-year-old female with recent NSTEMI status post stent placement presents to the hospital with a syncopal episode patient is noted to be hypotensive on presentation Nephrology consulted for acute kidney injury patient's baseline renal function serum creatinine was 1.0 in July Acute kidney injury hemodynamically mediated likely in the setting of hypotension No previous CKD Continue with gentle IV fluid hydration avoid hypotension Hold blood pressure medications at this time in lieu of hypotension Cardiology consultation noted hx NSTEMI new stent placement 07/202525 grade 2 diastolic HF Monitoring replace electrolytes according to hospital medical guidelines No indication for dialysis at this time recommend continue gentle hydration and avoid nephrotoxic agents Plan discussed with: Patient LISE JACOB MD Oct 09, 2025 14:46
[2025-10-09 15:03] LABS: Hepatitis B Surface Antigen Negative (Negative)
[2025-10-09 15:23] LABS: Hepatitis C Antibody Negative (Negative)
[2025-10-09] MEDS ORDERED: ALPRAZolam 0.5 MG TAB PO PRN (16:45)
[2025-10-09] MEDS: ALPRAZolam 0.5 MG TAB PO PRN (22:50)
[2025-10-10] VITALS (8 sets, daily range): BP systolic 104–133; BP diastolic 51–72; PULSE 69–81; RESP 16–18; TEMP 97.9–98.6; O2SAT 95–97
[2025-10-10 06:43] LABS: Anion Gap 14 (5-15); Carbon Dioxide 22 mmol/L (20-31); Chloride 106 mmol/L (98-107); Hematocrit 31.9 % (36.0-46.0); Hemoglobin 10.7 g/dL (12.2-16.2); Mean Corpuscular Hemoglobin 26.3 pg (28.0-32.0); Mean Corpuscular Volume 78.9 fL (80.0-100.0); Nucleated Red Blood Cells % 0.0 %; Potassium 4.0 mmol/L (3.5-5.1); Sodium 142 mmol/L (136-145)
[2025-10-10 06:44] LABS: Calcium 9.4 mg/dL (8.7-10.4)
[2025-10-10 06:49] LABS: BUN/Creatinine Ratio 12.6 (10.0-20.0); Glucose 82 mg/dL (74-106)
[2025-10-10 06:52] LABS: Blood Urea Nitrogen 23 mg/dL (9-23)
--- NOTE | 2025-10-10 11:20 | DVHPN2 ---
Progress Note Date Seen: Oct 10, 2025 Has the PT tested + for MRSA If YES, has PT been informed?: No Medical Necessity Reason Pt with a Central, PICC or Fol: No Subjective Patient reports: Feels better Objective vital signs Vital Sign Date Time Temp Pulse Resp B/P (MAP) Pulse Ox O2 Delivery O2 Flow Rate FiO2 10/10/25 08:43 97.9 73 18 129/63 (85) 96 97.9 10/09/25 20:00 Room Air* 0 21 Total Intake and Output 10/09/25 10/09/25 10/10/25 15:00 23:00 07:00 Intake Total 0 ml 575 ml Balance 0 ml 575 ml medications Current Medications Medications Dose Ordered Sig/Dionna Route Start Time Stop Time Status Last Admin Dose Admin Acetaminophen/ Hydrocodone Bitart 1 tab Q4HP PRN PO 10/08/25 18:15 Hold Temazepam 15 mg QHSP PRN PO 10/08/25 18:15 Ondansetron HCl 4 mg Q4HP PRN IV 10/08/25 18:15 Docusate Sodium 100 mg BIDPRN PRN PO 10/08/25 18:15 Nitroglycerin 0.4 mg Q5MINP PRN SL 10/08/25 18:15 Diphenhydramine HCl 25 mg Q6HP PRN IV 10/08/25 18:15 Aspirin 81 mg DAILY PO 10/09/25 10:00 10/10/25 10:34 81 MG Ticagrelor 90 mg BID PO 10/09/25 10:00 10/10/25 10:35 90 MG Sodium Chloride 1,000 ml @ 60 mls/hr [id number] IV 10/09/25 14:45 10/09/25 22:50 60 MLS/HR Levofloxacin 50 ml @ 50 mls/hr Q48H IV 10/10/25 18:00 Alprazolam 1 mg [id number] PRN PO 10/09/25 19:30 10/09/25 22:50 1 MG Examination: GENERAL:Normal, CVS:Normal, ABDOMEN:Normal laboratory and microbiology Laboratory Tests 10/10/25 05:40 Test 10/10/25 05:40 Range/Units Serum Glucose 82 74-106 mg/dL Microbiology Date/Time Source Procedure Growth Status 10/09/25 04:30 Nose MRSA Screen - Final Complete Problem List/Assessment/Plan Problem List/Assessment/Plan 80-year-old female with recent NSTEMI status post stent placement presents to the hospital with a syncopal episode patient is noted to be hypotensive on presentation Nephrology consulted for acute kidney injury patient's baseline renal function serum creatinine was 1.0 in July Acute kidney injury hemodynamically mediated likely in the setting of hypotension No previous CKD Continue with gentle IV fluid hydration avoid hypotension . renal function improved Hold blood pressure medications at this time in lieu of hypotension Cardiology consultation noted hx NSTEMI new stent placement 07/202525 grade 2 diastolic HF Monitoring replace electrolytes according to hospital medical guidelines No indication for dialysis at this time recommend continue gentle hydration and avoid nephrotoxic agents Plan discussed with: Patient My Orders My Orders Orders - LISE JACOB MD Procedure Category Date Status Time Sodium Chloride 0.9% PHA 10/09/25 In Process 14:45 LISE JACOB MD Oct 10, 2025 11:20
--- NOTE | 2025-10-10 11:52 | DVHPN2 ---
Progress Note - Dictate Date Seen: Oct 10, 2025 Has the PT tested + for MRSA If YES, has PT been informed?: No Medical Necessity Reason Pt with a Central, PICC or Fol: No vital signs Vital Sign Date Time Temp Pulse Resp B/P (MAP) Pulse Ox O2 Delivery O2 Flow Rate FiO2 10/10/25 08:43 97.9 73 18 129/63 (85) 96 97.9 10/09/25 20:00 Room Air* 0 21 Total Intake and Output 10/09/25 10/09/25 10/10/25 14:59 22:59 06:59 Intake Total 0 ml 575 ml Balance 0 ml 575 ml medications Current Medications Medications Dose Ordered Sig/Dionna Route Start Time Stop Time Status Last Admin Dose Admin Acetaminophen/ Hydrocodone Bitart 1 tab Q4HP PRN PO 10/08/25 18:15 Hold Temazepam 15 mg QHSP PRN PO 10/08/25 18:15 Ondansetron HCl 4 mg Q4HP PRN IV 10/08/25 18:15 Docusate Sodium 100 mg BIDPRN PRN PO 10/08/25 18:15 Nitroglycerin 0.4 mg Q5MINP PRN SL 10/08/25 18:15 Diphenhydramine HCl 25 mg Q6HP PRN IV 10/08/25 18:15 Aspirin 81 mg DAILY PO 10/09/25 10:00 10/10/25 10:34 81 MG Ticagrelor 90 mg BID PO 10/09/25 10:00 10/10/25 10:35 90 MG Sodium Chloride 1,000 ml @ 60 mls/hr [id number] IV 10/09/25 14:45 10/09/25 22:50 60 MLS/HR Levofloxacin 50 ml @ 50 mls/hr Q48H IV 10/10/25 18:00 Alprazolam 1 mg [id number] PRN PO 10/09/25 19:30 10/09/25 22:50 1 MG objective General Appearance: alert, no distress HEENT: EOMI, PERRLA, normal external inspect of ears, no icterus, no nasal drainage Neck: no carotid bruit, no jugular venous distention (JVD), no lymphadenopathy Chest: normal thorax Respiratory: clear to auscultation, normal air movement Cardiovascular: regular rate and rhythm, no diastolic murmur, no jugular venous distention (JVD), no rub, no systolic murmur Abdominal: soft, no hepatomegaly, no mass, no splenomegaly, no tenderness Musculoskeletal: no joint tenderness, no swelling Extremities: normal pulses, no calf tenderness, no clubbing, no cyanosis, no edema Skin: no bruising, no jaundice, no rash Neurological: alert, No focal deficit laboratory and microbiology Laboratory Tests 10/10/25 05:40 Test 10/10/25 05:40 Range/Units Serum Glucose 82 74-106 mg/dL Problem List - Dyspnea r/t fluid overload - CAD status post cardiac stent at [facility] Cardiology consult, medication, resume DAPT,monitoring - Syncope Cardiology consult, monitoring - POONAM r/t vasomotor nephropathy Nephrology consult, renal ultrasound ,medication, monitoring - Hypotension Blood pressure medications on hold, monitoring -Acute cystitis without hematuria monitoring Assessment/Plan Subjective Patient is awake and alert. Objective Patient was admitted for syncopal episode. Patient had syncopal episode patient. Also found to have acute renal failure. Kidney function is improving. Creatinine is 1.83. Patient found to have acute cystitis. Patient started on antibiotics. Most likely POONAM from hypotension. Plan Monitor on EKG. Continue IV fluids for POONAM. Continue PPI. Start antibiotics for UTI. Plan discussed with: Patient, Other PAWAN PORRAS NP Oct 10, 2025 11:52
[2025-10-11] VITALS (8 sets, daily range): BP systolic 117–136; BP diastolic 59–84; PULSE 77–88; RESP 16–20; TEMP 97.6–98.4; O2SAT 91–96
[2025-10-11 05:47] LABS: Calcium 9.4 mg/dL (8.7-10.4); Chloride 106 mmol/L (98-107); Potassium 3.8 mmol/L (3.5-5.1); Sodium 141 mmol/L (136-145)
[2025-10-11 05:48] LABS: Anion Gap 13 (5-15); Carbon Dioxide 22 mmol/L (20-31)
[2025-10-11 05:53] LABS: BUN/Creatinine Ratio 12.3 (10.0-20.0); Blood Urea Nitrogen 20 mg/dL (9-23); Glucose 85 mg/dL (74-106)
--- NOTE | 2025-10-11 11:13 | DVHPN2 ---
Progress Note - Dictate Date Seen: Oct 11, 2025 Has the PT tested + for MRSA If YES, has PT been informed?: No Medical Necessity Reason Pt with a Central, PICC or Fol: No vital signs Vital Sign Date Time Temp Pulse Resp B/P (MAP) Pulse Ox O2 Delivery O2 Flow Rate FiO2 10/11/25 09:26 97.9 77 20 117/59 (78) 96 97.9 10/11/25 08:00 Room Air* 0 21 Total Intake and Output 10/10/25 10/10/25 10/11/25 15:00 23:00 07:00 Intake Total 600 ml 650 ml 1020 ml Balance 600 ml 650 ml 1020 ml medications Current Medications Medications Dose Ordered Sig/Dionna Route Start Time Stop Time Status Last Admin Dose Admin Acetaminophen/ Hydrocodone Bitart 1 tab Q4HP PRN PO 10/08/25 18:15 Hold Temazepam 15 mg QHSP PRN PO 10/08/25 18:15 Ondansetron HCl 4 mg Q4HP PRN IV 10/08/25 18:15 Docusate Sodium 100 mg BIDPRN PRN PO 10/08/25 18:15 Nitroglycerin 0.4 mg Q5MINP PRN SL 10/08/25 18:15 Diphenhydramine HCl 25 mg Q6HP PRN IV 10/08/25 18:15 Aspirin 81 mg DAILY PO 10/09/25 10:00 10/11/25 09:04 81 MG Ticagrelor 90 mg BID PO 10/09/25 10:00 10/11/25 09:04 90 MG Sodium Chloride 1,000 ml @ 60 mls/hr [id number] IV 10/09/25 14:45 10/11/25 00:13 60 MLS/HR Alprazolam 1 mg [id number] PRN PO 10/09/25 19:30 10/11/25 00:13 1 MG Levofloxacin 50 ml @ 50 mls/hr Q24H IV 10/10/25 18:00 10/10/25 18:04 50 MLS/HR objective General Appearance: alert, no distress HEENT: EOMI, PERRLA, normal external inspect of ears, no icterus, no nasal drainage Neck: no carotid bruit, no jugular venous distention (JVD), no lymphadenopathy Chest: normal thorax Respiratory: clear to auscultation, normal air movement Cardiovascular: regular rate and rhythm, no diastolic murmur, no jugular venous distention (JVD), no rub, no systolic murmur Abdominal: soft, no hepatomegaly, no mass, no splenomegaly, no tenderness Musculoskeletal: no joint tenderness, no swelling Extremities: normal pulses, no calf tenderness, no clubbing, no cyanosis, no edema Skin: no bruising, no jaundice, no rash Neurological: alert, No focal deficit laboratory and microbiology Laboratory Tests 10/11/25 05:02 10/10/25 05:40 Test 10/11/25 05:02 Range/Units Serum Glucose 85 74-106 mg/dL Problem List - Dyspnea r/t fluid overload - CAD status post cardiac stent at [facility] Cardiology consult, medication, resume DAPT,monitoring - Syncope Cardiology consult, monitoring - POONAM r/t vasomotor nephropathy Nephrology consult, renal ultrasound ,medication, monitoring - Hypotension Blood pressure medications on hold, monitoring -Acute cystitis without hematuria monitoring Assessment/Plan Subjective: Patient is awake and alert. Objective: Patient was admitted for generalized weakness. Patient was found to have acute renal failure. Patient is status post PCI to RCA. Renal function is improving. Patient has acute cystitis and was started on Levaquin. GFR is improving. Patient has a poor appetite. Plan: Continue current treatment. Continue IV hydration. Plan discussed with: Patient, Other PAWAN PORRAS NP Oct 11, 2025 11:13
--- NOTE | 2025-10-11 13:46 | DVHPN2 ---
Progress Note Date Seen: Oct 11, 2025 Has the PT tested + for MRSA If YES, has PT been informed?: No Medical Necessity Reason Pt with a Central, PICC or Fol: No Subjective Patient reports: Feels better Objective vital signs Vital Sign Date Time Temp Pulse Resp B/P (MAP) Pulse Ox O2 Delivery O2 Flow Rate FiO2 10/11/25 09:26 97.9 77 20 117/59 (78) 96 97.9 10/11/25 08:00 Room Air* 0 21 Total Intake and Output 10/10/25 10/10/25 10/11/25 15:00 23:00 07:00 Intake Total 600 ml 650 ml 1020 ml Balance 600 ml 650 ml 1020 ml medications Current Medications Medications Dose Ordered Sig/Dionna Route Start Time Stop Time Status Last Admin Dose Admin Acetaminophen/ Hydrocodone Bitart 1 tab Q4HP PRN PO 10/08/25 18:15 Hold Temazepam 15 mg QHSP PRN PO 10/08/25 18:15 Ondansetron HCl 4 mg Q4HP PRN IV 10/08/25 18:15 Docusate Sodium 100 mg BIDPRN PRN PO 10/08/25 18:15 Nitroglycerin 0.4 mg Q5MINP PRN SL 10/08/25 18:15 Diphenhydramine HCl 25 mg Q6HP PRN IV 10/08/25 18:15 Aspirin 81 mg DAILY PO 10/09/25 10:00 10/11/25 09:04 81 MG Ticagrelor 90 mg BID PO 10/09/25 10:00 10/11/25 09:04 90 MG Sodium Chloride 1,000 ml @ 60 mls/hr [id number] IV 10/09/25 14:45 10/11/25 00:13 60 MLS/HR Alprazolam 1 mg [id number] PRN PO 10/09/25 19:30 10/11/25 00:13 1 MG Levofloxacin 50 ml @ 50 mls/hr Q24H IV 10/10/25 18:00 10/10/25 18:04 50 MLS/HR Examination: GENERAL:Normal, CVS:Normal, SKIN:Normal laboratory and microbiology Laboratory Tests 10/11/25 05:02 10/10/25 05:40 Test 10/11/25 05:02 Range/Units Serum Glucose 85 74-106 mg/dL Microbiology Date/Time Source Procedure Growth Status 10/09/25 04:30 Nose MRSA Screen - Final Complete Problem List/Assessment/Plan Problem List/Assessment/Plan 80-year-old female with recent NSTEMI status post stent placement presents to the hospital with a syncopal episode patient is noted to be hypotensive on presentation Nephrology consulted for acute kidney injury patient's baseline renal function serum creatinine was 1.0 in July Acute kidney injury hemodynamically mediated likely in the setting of hypotension No previous CKD . renal function improved DC fluids encourage po Hold blood pressure medications at this time in lieu of hypotension Cardiology consultation noted hx NSTEMI new stent placement 07/202525 grade 2 diastolic HF Monitoring replace electrolytes according to hospital medical guidelines No indication for dialysis at this time recommend continue gentle hydration and avoid nephrotoxic agents Plan discussed with: Patient LISE JACOB MD Oct 11, 2025 13:46
[2025-10-11] MEDS: DOCUSATE SOD 100 MG CAP PO PRN (13:58)
[2025-10-12] VITALS (8 sets, daily range): BP systolic 113–150; BP diastolic 69–81; PULSE 79–92; RESP 16–18; TEMP 97.6–98.3; O2SAT 92–95
[2025-10-12 06:52] LABS: Anion Gap 13 (5-15); Calcium 9.6 mg/dL (8.7-10.4); Carbon Dioxide 22 mmol/L (20-31); Chloride 104 mmol/L (98-107); Potassium 3.6 mmol/L (3.5-5.1); Sodium 139 mmol/L (136-145)
[2025-10-12 06:58] LABS: BUN/Creatinine Ratio 13.5 (10.0-20.0); Blood Urea Nitrogen 22 mg/dL (9-23)
[2025-10-12 07:08] LABS: Glucose 125 mg/dL (74-106)
--- NOTE | 2025-10-12 07:27 | DVHPN2 ---
Progress Note - Dictate Date Seen: Oct 12, 2025 Has the PT tested + for MRSA If YES, has PT been informed?: No Medical Necessity Reason Pt with a Central, PICC or Fol: No vital signs Vital Sign Date Time Temp Pulse Resp B/P (MAP) Pulse Ox O2 Delivery O2 Flow Rate FiO2 10/12/25 05:12 98.2 88 18 113/71 (85) 93 98.2 10/11/25 20:00 Room Air* 0 21 Total Intake and Output 10/11/25 10/11/25 10/12/25 15:00 23:00 07:00 Intake Total 650 ml 150 ml Balance 650 ml 150 ml medications Current Medications Medications Dose Ordered Sig/Dionna Route Start Time Stop Time Status Last Admin Dose Admin Acetaminophen/ Hydrocodone Bitart 1 tab Q4HP PRN PO 10/08/25 18:15 Hold Temazepam 15 mg QHSP PRN PO 10/08/25 18:15 Ondansetron HCl 4 mg Q4HP PRN IV 10/08/25 18:15 Docusate Sodium 100 mg BIDPRN PRN PO 10/08/25 18:15 10/11/25 13:58 100 MG Nitroglycerin 0.4 mg Q5MINP PRN SL 10/08/25 18:15 Diphenhydramine HCl 25 mg Q6HP PRN IV 10/08/25 18:15 Aspirin 81 mg DAILY PO 10/09/25 10:00 10/11/25 09:04 81 MG Ticagrelor 90 mg BID PO 10/09/25 10:00 10/11/25 22:37 90 MG Alprazolam 1 mg [id number] PRN PO 10/09/25 19:30 10/11/25 22:41 1 MG Levofloxacin 50 ml @ 50 mls/hr Q24H IV 10/10/25 18:00 10/11/25 17:10 50 MLS/HR objective General Appearance: alert, no distress HEENT: EOMI, PERRLA, normal external inspect of ears, no icterus, no nasal drainage Neck: no carotid bruit, no jugular venous distention (JVD), no lymphadenopathy Chest: normal thorax Respiratory: clear to auscultation, normal air movement Cardiovascular: regular rate and rhythm, no diastolic murmur, no jugular venous distention (JVD), no rub, no systolic murmur Abdominal: soft, no hepatomegaly, no mass, no splenomegaly, no tenderness Musculoskeletal: no joint tenderness, no swelling Extremities: normal pulses, no calf tenderness, no clubbing, no cyanosis, no edema Skin: no bruising, no jaundice, no rash Neurological: alert, No focal deficit laboratory and microbiology Laboratory Tests 10/12/25 05:19 10/10/25 05:40 Test 10/12/25 05:19 Range/Units Serum Glucose 125 H 74-106 mg/dL Problem List - Dyspnea r/t fluid overload - CAD status post cardiac stent at [facility] Cardiology consult, medication, resume DAPT,monitoring - Syncope Cardiology consult, monitoring - POONAM r/t vasomotor nephropathy Nephrology consult, renal ultrasound ,medication, monitoring - Hypotension Blood pressure medications on hold, monitoring -Acute cystitis without hematuria monitoring Assessment/Plan Subjective: Patient is awake and alert. Objective: Patient was admitted for generalized weakness. She was found to have acute renal failure. Patient had a recent PCI to RCA at [place]. Patient has continued dual antiplatelet therapy. Patient has been receiving IV fluids which were discontinued yesterday. Patient also has acute cystitis. Creatinine is 1.63. GFR is 32. Patient has not been eating well and only tolerated one bowl of soup today. Plan: Continue antibiotics. Patient to increase oral intake. Discharge planning for tomorrow to continue dual antiplatelet therapy and antibiotics. Patient will to follow up with nephrology outpatient. Plan discussed with: Patient, Other PAWAN PORRAS NP Oct 12, 2025 07:27
--- NOTE | 2025-10-12 15:40 | DVHPN2 ---
Progress Note Date Seen: Oct 12, 2025 Has the PT tested + for MRSA If YES, has PT been informed?: No Medical Necessity Reason Pt with a Central, PICC or Fol: No Subjective Patient reports: Feels better Objective vital signs Vital Sign Date Time Temp Pulse Resp B/P (MAP) Pulse Ox O2 Delivery O2 Flow Rate FiO2 10/12/25 09:00 98.2 79 16 130/74 (92) 95 98.2 10/12/25 08:00 Room Air* 0 21 Total Intake and Output 10/11/25 10/11/25 10/12/25 15:00 23:00 07:00 Intake Total 650 ml 150 ml Balance 650 ml 150 ml medications Current Medications Medications Dose Ordered Sig/Dionna Route Start Time Stop Time Status Last Admin Dose Admin Acetaminophen/ Hydrocodone Bitart 1 tab Q4HP PRN PO 10/08/25 18:15 Hold Temazepam 15 mg QHSP PRN PO 10/08/25 18:15 Ondansetron HCl 4 mg Q4HP PRN IV 10/08/25 18:15 Docusate Sodium 100 mg BIDPRN PRN PO 10/08/25 18:15 10/11/25 13:58 100 MG Nitroglycerin 0.4 mg Q5MINP PRN SL 10/08/25 18:15 Diphenhydramine HCl 25 mg Q6HP PRN IV 10/08/25 18:15 Aspirin 81 mg DAILY PO 10/09/25 10:00 10/12/25 09:16 81 MG Ticagrelor 90 mg BID PO 10/09/25 10:00 10/12/25 09:16 90 MG Alprazolam 1 mg [id number] PRN PO 10/09/25 19:30 10/12/25 13:34 1 MG Levofloxacin 50 ml @ 50 mls/hr Q24H IV 10/10/25 18:00 10/11/25 17:10 50 MLS/HR Examination: GENERAL:Normal, CVS:Normal, SKIN:Normal laboratory and microbiology Laboratory Tests 10/12/25 05:19 10/10/25 05:40 Test 10/12/25 05:19 Range/Units Serum Glucose 125 H 74-106 mg/dL Microbiology Date/Time Source Procedure Growth Status 10/09/25 04:30 Nose MRSA Screen - Final Complete Problem List/Assessment/Plan Problem List/Assessment/Plan 80-year-old female with recent NSTEMI status post stent placement presents to the hospital with a syncopal episode patient is noted to be hypotensive on presentation Nephrology consulted for acute kidney injury patient's baseline renal function serum creatinine was 1.0 in July Acute kidney injury hemodynamically mediated likely in the setting of hypotension No previous CKD . renal function improved DC fluids encourage po Hold blood pressure medications at this time in lieu of hypotension Cardiology consultation noted hx NSTEMI new stent placement 07/202525 grade 2 diastolic HF Monitoring replace electrolytes according to hospital medical guidelines No indication for dialysis at this time recommend continue gentle hydration and avoid nephrotoxic agents stable from renal standpoint to be followed up outpatient will sign off Plan discussed with: Patient LISE JACOB MD Oct 12, 2025 15:40
[2025-10-13 01:00] VITALS: BP 103/68; PULSE 90; RESP 16; TEMP 98.9; O2SAT 95
[2025-10-13 05:00] VITALS: BP 115/62; PULSE 80; RESP 16; TEMP 98.2; O2SAT 95
[2025-10-13 08:00] VITALS: PULSE 86; PULSE 98; RESP 16; O2SAT 96
[2025-10-13 09:00] VITALS: BP 102/64; PULSE 83; RESP 18; TEMP 97.8; O2SAT 96
--- NOTE | 2025-10-13 11:33 | DVHDS2 ---
Discharge Summary Date of Admission Oct 08, 2025 at 18:06 Date of Discharge: Oct 13, 2025 Admitting Diagnosis generalized weakness Labs/Diagnostic Data: Laboratory Results Test 10/12/25 05:19 10/10/25 05:40 10/09/25 05:50 10/09/25 05:06 Sodium Level 139 mmol/L (136-145) Potassium Level 3.6 mmol/L (3.5-5.1) Chloride Level 104 mmol/L (98-107) Carbon Dioxide Level 22 mmol/L (20-31) Anion Gap 13 (5-15) Blood Urea Nitrogen 22 mg/dL (9-23) Creatinine 1.63 mg/dL (0.550-1.02) Glomerular Filtration Rate Calc 32 mL/min (>90) BUN/Creatinine Ratio 13.5 (10.0-20.0) Serum Glucose 125 mg/dL (74-106) Calcium Level 9.6 mg/dL (8.7-10.4) White Blood Count 8.3 10^3/uL (4.4-10.8) Red Blood Count 4.05 10^6/uL (4.0-5.20) Hemoglobin 10.7 g/dL (12.2-16.2) Hematocrit 31.9 % (36.0-46.0) Mean Corpuscular Volume 78.9 fL (80.0-100.0) Mean Corpuscular Hemoglobin 26.3 pg (28.0-32.0) Mean Corpuscular Hemoglobin Concent 33.4 g/dL (32.0-36.0) Red Cell Distribution Width 15.4 % (11.8-14.3) Platelet Count 227 10^3/uL (140-450) Mean Platelet Volume 10.1 fL (6.9-10.8) Neutrophils (%) (Auto) 60.3 % (37.0-80.0) Lymphocytes (%) (Auto) 19.4 % (10.0-50.0) Monocytes (%) (Auto) 13.8 % (0.0-12.0) Eosinophils (%) (Auto) 5.9 % (0.0-7.0) Basophils (%) (Auto) 0.6 % (0.0-2.0) Neutrophils # (Auto) 5.0 10 ^3/uL (1.6-8.6) Lymphocytes # (Auto) 1.6 10 ^3/uL (0.4-5.4) Monocytes # (Auto) 1.1 10 ^3/uL (0-1.3) Eosinophils # (Auto) 0.5 10 ^3/uL (0-0.8) Basophils # (Auto) 0 10 ^3/uL (0-0.2) Nucleated Red Blood Cells 0.0 % Urine Color Light-yellow (Yellow) Urine Clarity Turbid (Clear) Urine pH 5.0 (5.0-9.0) Urine Specific Gomer 1.013 (1.001-1.035) Urine Protein Trace (Negative) Urine Ketones Negative (Negative) Urine Blood Negative /uL (Negative) Urine Nitrite Negative (Negative) Urine Bilirubin Negative (Negative) Urine Urobilinogen Normal mg/dL (Negative) Urine Leukocyte Esterase Negative /uL (Negative) Urine RBC 1 /hpf (0 - 4) Urine Microscopic WBC 3 /HPF (0-5) Urine Squamous Epithelial Cells Mod /hpf (<5) Urine Bacteria Mod /hpf (None Seen) Urine Glucose Normal mg/dL (Normal) Total Bilirubin 0.7 mg/dL (0.2-1.0) Aspartate Amino Transferase (AST) 26 U/L (13-40) Alanine Aminotransferase (ALT) 21 U/L (7-40) Alkaline Phosphatase 109 U/L (46-116) Total Protein 7.6 g/dL (5.7-8.2) Albumin 4.2 g/dL (3.2-4.8) Hepatitis B Surface Antigen Negative (Negative) Hepatitis C Antibody Negative (Negative) Test 10/08/25 14:22 Troponin I High Sensitivity 34 ng/L (</=34) Other Laboratory Tests 10/12/25 05:19 10/10/25 05:40 Brief Hx & Hospital Course: The patient was admitted for evaluation of generalized weakness, which was found to be secondary to acute kidney injury (POONAM), most likely due to vasomotor nephropathy. Nephrology was consulted during the hospital stay, and the patient was cleared for discharge following appropriate management. She received intravenous fluids with subsequent improvement in renal function and resolution of her weakness. During hospitalization, the patient was also diagnosed with acute cystitis and completed a full course of intravenous antibiotics. She tolerated treatment well with resolution of urinary symptoms. The patient has a known history of coronary artery disease status post coronary stent placement and is to continue dual antiplatelet therapy with aspirin and Brilinta 90 mg twice daily. Her episode of syncope was likely secondary to hypotension, possibly related to antihypertensive medications, which were reviewed and adjusted accordingly. At the time of discharge, the patient was clinically stable. She was advised to maintain adequate hydration, continue her prescribed medications, and follow up with nephrology within two weeks for reassessment of kidney function. The patient was instructed to return to the emergency department if she develops recurrent weakness, dizziness, chest pain, shortness of breath, or other worsening symptoms. Condition at Discharge: Fair Final Diagnosis/Problems List - Dyspnea r/t fluid overload - CAD status post cardiac stent at [facility] Cardiology consult, medication, resume DAPT,monitoring - Syncope Cardiology consult, monitoring - POONAM r/t vasomotor nephropathy Nephrology consult, renal ultrasound ,medication, monitoring - Hypotension Blood pressure medications on hold, monitoring -Acute cystitis without hematuria Discharge Disposition: Home Discharge Instruct/Medications Diet: Cardiac 2g Na,low cholest Activity: No Restrictions, As Tolerated Follow Up/Referral: PCP within 1 week Scheduled Alprazolam (Xanax), TID, (Reported) Aspirin (Aspir-Low), 81 MG PO DAILY Carvedilol (Coreg), 12.5 MG PO Q12HR Hctz (Hydrochlorothiazide), 12.5 MG PO DAILY Losartan Potassium (Losartan Potassium), 50 MG PO DAILY, (Reported) Nifedipine (Nifedipine Er), 30 MG PO DAILY Ticagrelor Base (Brilinta), 90 MG PO BID Miscellaneous Medications Atorvastatin Calcium (Lipitor), 20 MG PO, (Reported) Discharge Statement: "Patient was advised to return to the ER or call 911 if any headaches, dizziness, shortness of breath, chest pain, abdominal pain, bleeding, fevers, or worsening of medical condition. Patient was counseled about treatment plan, medications, possible side effects, patientverbalized understanding. All questions were answered to the best of my ability. This discharge took greater then 30 minutes in planning, reviewing documentation, counseling the patient, and discussing with other team members." ASSESSMENT ASSESSMENT Assessment - Dyspnea r/t fluid overload - CAD status post cardiac stent at [facility] Cardiology consult, medication, resume DAPT,monitoring - Syncope Cardiology consult, monitoring - POONAM r/t vasomotor nephropathy Nephrology consult, renal ultrasound ,medication, monitoring - Hypotension Blood pressure medications on hold, monitoring -Acute cystitis without hematuria ELISABETH BEDOYA [employer] Oct 13, 2025 11:33
[2025-10-13 13:00] VITALS: BP 123/73; PULSE 91; RESP 20; TEMP 97.8; O2SAT 96
== END 2025-10-13 14:53 | disposition home or self-care (01) | DRG 689 ==
LOC: EDBD 11:36 → ER 11:36 → OVERFLOW 18:06 → TELE-WESTW 10-09 16:16
PROVIDERS: ADMIT Nurse Practitioner; ATTEND Nurse Practitioner
DX: N30.00 Acute cystitis without hematuria (principal); N17.0 Acute kidney failure with tubular necrosis; I50.32 Chronic diastolic (congestive) heart failure; I11.0 Hypertensive heart disease with heart failure; J44.9 Chronic obstructive pulmonary disease, unspecified; E87.70 Fluid overload, unspecified; F17.210 Nicotine dependence, cigarettes, uncomplicated; I95.9 Hypotension, unspecified; I25.10 Atherosclerotic heart disease of native coronary artery without angina pectoris; Z98.51 Tubal ligation status; Z88.6 Allergy status to analgesic agent; Z88.5 Allergy status to narcotic agent; Z90.710 Acquired absence of both cervix and uterus; Z88.1 Allergy status to other antibiotic agents; Z88.0 Allergy status to penicillin; Z88.3 Allergy status to other anti-infective agents; Z79.82 Long term (current) use of aspirin; Z82.49 Family history of ischemic heart disease and other diseases of the circulatory system; Z95.5 Presence of coronary angioplasty implant and graft; Z82.3 Family history of stroke; I25.2 Old myocardial infarction
CPT/HCPCS: 36415; 70450; 71045; 76775; 80048; 80053; 81001; 84484; 85025; 86803; 87081; 87340; 93005; 93886; 96365; 97110; 97116; 97163; 97530; 99291; G0378; J1956